=== PATIENT | male | born 1975 | race African-American/Black ===

== ENCOUNTER 2017-07-21 15:36 | Inpatient (IN) | payer SELFPAY ==
[2017-07-21] MEDS ORDERED: NS 1000 ML 1,000 ML ONE ×2 (15:51→21:54)
[2017-07-21] MEDS ORDERED: NS 1000 ML 1,000 ML IV ONE ×2 (15:59→16:00)
--- NOTE | 2017-07-21 16:00 | DR.GENAD ---
HPI - PCP Primary Care Physician: ronda tian - HPI Comment HPI Comment: GLUCOSE MARKEDLY ELEVATED. NO HISTORY OF DIABETES. - Complaint/Symptoms Chief Complaint Doctors Comments: SENT TO ED FROM HIS [facility] [employer] OFFICE CONFUSE. HE IS CINFUFUSE IN ED ALSO. Chief Complaint:: pt came in very confused not able to stay awake. Daughter said " He had right foot surgery on the 28 of sep and hasnt been the same since" - Nurses notes reviewed Nurses Notes Review: Yes - Source History Provided: Family Member - Mode of Arrival Mode of Arrival: Wheelchair - Timing Onset of Chief Complaint: 07/12/17 Came on: Suddenly - Duration Duration: Constant Duration: Days - Severity Severity: Moderate PMH - PMH Past Medical History: Yes Past Medical History: Hypertension Past Surgical History: Yes Past Surgical History Comment: right foot - Family History History of Family Medical Conditions: No - Social History Does patient currently use any type of tobacco product: No Have you used tobacco products in the last 12 months: No Type of Tobacco Use: None Does any household member use tobacco: No Alcohol Use: None Do you use any recreational Drugs:: No Lives With: Family Lives Where: Home - infectious screening In the last 2 months have you had wt loss of >10#?: NO Have you had fever, night sweats or hemotysis?: No Have you traveled outside the country in the last 6 months?: No Isolation: Standard ROS - Review of Systems Constitutional: Fever, Weakness. negative: Diaphoresis Eyes: negative: Eye Pain, Discharge ENTM: negative: Ear Pain, Nose Discharge, Nose Congestion, Throat Pain Respiratoy: Non-Productive Cough, Short of Breath, Wheezing. negative: Productive Cough, Hemoptysis Cardiovascular: negative: Chest Pain Gastrointestinal/Abdominal: Abdominal Pain, Nausea Genitourinary: Other (POLYURIA, POLYDYPSIA PER FAMILY.) Neurological: Pre-existing Deficit, Problems Walking, Other (PATIENT NOT COMPREHENDING, NOT FOLLOWING INTRUCTIONS. ALERT.) Musculoskeletal: Other (EXTREMITIRS BOT FLACID OR TENSE.) Integumentary: No Symptoms Reported Hematologic/Lymphatic: No Symptoms Reported Endocrine: Increased Thirst, Increased Urine. negative: Flushing (HISTORY PER FAMILY MEMBERS.) All Other Systems: Reviewed and Negative PE - Vital Signs Vitals: Pulse Rate 126 Respiratory Rate 18 Blood Pressure 136/95 O2 Sat by Pulse Oximetry 95 - General Limitations: Altered Mental Status General Appearance: Alert, Other (NOT COMPREHENDING.) - Head Head Exam: Normal Inspection - Eyes Eye exam: PERRL (EQUAL AND REACTIVE.). negative: Scleral Icterus, Conjunctival Injection, Nystagmus, Miosis, Mydrasis, Periorbital Swelling, Periorbital Tenderness - ENT ENT Exam: Normal External Ear Exam External Ear Exam: Normal External Inspection TM/Canal Exam: Bilateral Normal Nose Exam: Normal Nose Exam Mouth Exam: Normal Inspection Throat Exam: Normal Inspection - Neck Neck Exam: Full ROM, Trachea Midline - Chest Chest Inspection: Symmetric Chest Wall Rise - Respiratory Respiratory Exam: Normal Lung Sounds Bilat Respiratory Exam: Bilateral Rhonchi, Lower Rhonchi - Cardiovascular Cardiovascular Exam: Regular Rate, Normal Rhythm, Normal Heart Sounds - Abdominal Exam Abdominal Exam: Normal Bowel Sounds, Soft, Tenderness Abdominal Tenderness: Diffuse, Moderate - Extremities Extremities Exam: Edema (TRACE) - Back Back Exam: negative: Normal Inspection (TENDER.) - Neurologic Neurological Exam: Alert, Reflexes Normal. negative: Oriented X3, Motor Sensory Deficit - Skin Skin Exam: negative: Rash, Erythema MDM - Additional Information Additional Information Obtained From: Family, PCP - Differential Diagnosis Differential Diagnosis: AMS, DKA, DEHYDRATION, FEVER, SEPSIS Course - Treatment Treatment: SEE ORDERS. 2L NS IN ED. INSULIN DRIP IN ED. - Consultation Consultation Comments: DISCUSS PATIENT WITH DR. CRYSTAL. HE WILL ADMIT PATIENT. - Education/Counseling Education/Counseling: Family, Education Educated On: Treatment, Diagnosis ROR - Labs Reviewed Laboratory Results Reviewed?: Yes Result Diagrams: 07/21/17 16:00 07/21/17 23:40 - XRAY XRAY Interpreted by: Radiologist XRAY Findings: REPORT DISCUSS WITH PATIENTS FAMILY. - EKG Rhythm: ST - Diagnosis Discharge Problem: Diabetes mellitus, new onset, Hyperkalemia, Fever DKA (diabetic ketoacidoses) Qualifiers: Diabetes mellitus type: type 2 Diabetes mellitus complication detail: without coma Qualified Code(s): E13.10 - Other specified diabetes mellitus with ketoacidosis without coma UTI (urinary tract infection) Qualifiers: Urinary tract infection type: site unspecified Hematuria presence: without hematuria Qualified Code(s): N39.0 - Urinary tract infection, site not specified - Discharge Plan Disposition: 09 ADMITTED INPATIENT Condition: Stable - Follow ups/Referrals - Instructions
[2017-07-21 16:17] LABS: BASOPHILS # (AUTO) 0.1 X10^3/uL (0.0-0.1); BASOPHILS % (AUTO) 0.7 % (0.2-1.0); EOSINOPHILS % (AUTO) 0.1 % (0.9-2.9); HEMATOCRIT 55.2 % (42.0-54.0); HEMOGLOBIN 18.1 g/dL (13.5-18.0); LYMPHOCYTES # (AUTO) 1.7 X10^3/uL (1.3-2.9); MEAN CORPUSCULAR HEMOGLOBIN 28.9 pg (27.0-34.0); MEAN CORPUSCULAR HGB CONC 32.8 g/dL (33.0-35.0); MEAN CORPUSCULAR VOLUME 88.1 fL (80.0-100.0); MEAN PLATELET VOLUME 11.4 fL (7.4-11.0); MONOCYTES # (AUTO) 0.6 x10^3/uL (0.3-0.8); NEUTROPHILS # (AUTO) 13.3 x10^3/uL (2.2-4.8); NEUTROPHILS % (AUTO) 84.2 % (42.0-75.0); PLATELET COUNT 213 X10^3/uL (150.0-450.0); RED BLOOD COUNT 6.26 X10^6/uL (4.7-6.0); RED CELL DISTRIBUTION WIDTH 14.1 % (11.6-16.5); WHITE BLOOD COUNT 15.8 X10^3/uL (3.6-10.0)
[2017-07-21 16:17] LABS: ABG BASE EXCESS -8.9 mmol/L (-2.0-2.0)
[2017-07-21 16:18] LABS: ABG HCO3 15.6 mmol/L (22-26)
[2017-07-21 16:19] LABS: ABG ALLEN TEST POS
[2017-07-21 16:36] LABS: ALANINE AMINOTRANSFERASE 36 Units/L (12-78); ALBUMIN 4.9 g/dL (3.4-5.0); ALKALINE PHOSPHATASE 66 Units/L (46-116); ASPARTATE AMINO TRANSFERASE 15 Units/L (15-37); BLOOD UREA NITROGEN 48 mg/dL (7-18); CALCIUM 11.2 mg/dL (8.5-10.1); CARBON DIOXIDE 16.6 mmol/L (21-32); CHLORIDE 92 mmol/L (98-107); CKMB % 0.8 % (<4); CREATINE KINASE 131 Units/L (39-308); CREATINE KINASE MB < 1.0 ng/mL (0-4.0); CREATININE 2.92 mg/dL (0.70-1.30); SODIUM 134 mmol/L (136-145); TOTAL PROTEIN 10.2 g/dL (6.4-8.2); TROPONIN I < 0.02 ng/mL (0-1.5); eGFR BLACK RACES 30 (>60); eGFR NON BLACK RACES 25 (>60)
[2017-07-21 16:44] LABS: BILIRUBIN,URINE NEGATIVE (NEGATIVE); BLOOD/HEMOGLOBIN,URINE 2+ (NEGATIVE); GLUCOSE, URINE 4+ (NEGATIVE); KETONES,URINE 2+ (NEGATIVE); LEUKOCYTE ESTERASE ,URINE NEGATIVE (NEGATIVE); NITRITES,URINE NEGATIVE (NEGATIVE); PROTEIN,URINE 3+ (NEGATIVE); UROBILINOGEN,URINE NORMAL (NORMAL)
--- NOTE | 2017-07-21 16:47 | CT ---
HISTORY: Altered mental status. Study: CT brain without contrast Comparison: None. Technique: Multiple axial images of the brain were obtained from the skull base to the vertex without administra tion of IV contrast. Dose reduction techniques including Automated Exposure Control (AEC) and adjust ment of mA and kV were utilized. Findings: No acute intraparenchymal hemorrhage or mass can be identified. No extra-axial fluid collections are seen. No alteration in the attenuation of the brain parenchyma can be identified to suggest acute o r subacute ischemic change. The ventricular system is symmetric and nondilated. The extracranial st ructures are grossly unremarkable. IMPRESSION: No acute intracranial pathology. Reported By:
[2017-07-21 16:53] LABS: COR NA(FOR HYPERGLY) 155 mmol/L (136-145)
--- NOTE | 2017-07-21 16:54 | RAD ---
Chest, one-view Indication: Hypertension Comparison: None Findings: Heart size is normal and the lungs are clear. Osseous thorax is unremarkable. Impression: No acute chest process. Reported By:
[2017-07-21 16:56] LABS: AMORPHOUS SEDIMENT,UR 1+ /HPF (NEGATIVE); APPEARANCE,URINE SLIGHTLY HAZY (CLEAR); BACTERIA,URINE 1+ /HPF (NEGATIVE); COLOR,URINE YELLOW (YELLOW); SQUAMOUS EPITHELIAL CELL,UR RARE /HPF (NEGATIVE)
[2017-07-21] MEDS ORDERED: HumuLIN R IV ONE (16:57)
[2017-07-21] MEDS ORDERED: HumuLIN R ONE (17:02)
[2017-07-21] MEDS ORDERED: NS 100 ML IV 100 ML IV ONE (17:02)
[2017-07-21] MEDS ORDERED: CALCIUM CHLORIDE INJ IV ONE (17:17)
[2017-07-21] MEDS ORDERED: TORADOL 30 MG VIAL ONE (18:19)
[2017-07-21] MEDS ORDERED: TORADOL 30 MG VIAL IVP ONE (18:21)
[2017-07-21 18:50] LABS: CALCIUM 10.9 mg/dL (8.5-10.1); CARBON DIOXIDE 17.6 mmol/L (21-32); CREATININE 2.32 mg/dL (0.70-1.30)
[2017-07-21] MEDS ORDERED: SNACK - Diabetic Appropriate PO SCH (20:00)
[2017-07-21] MEDS ORDERED: NS 50 ML IV + SPIKE MINIBAG* 50 ML IV ONE (20:25)
[2017-07-21] MEDS ORDERED: ROCEPHIN VIAL 1 GM ONE (20:26)
[2017-07-21] MEDS: ROCEPHIN VIAL 1 GM 1 GM in NS 50 ML IV + SPIKE MINIBAG* 50 ML IV SCH (20:36)
[2017-07-22] LABS: CALCIUM 10.9 mg/dL (8.5-10.1); CARBON DIOXIDE 22.8 mmol/L (21-32); CREATININE 2.2 mg/dL (0.70-1.30)
[2017-07-22 00:14] LABS: CKMB % 0.7 % (<4); CREATINE KINASE 141 Units/L (39-308); CREATINE KINASE MB < 1.0 ng/mL (0-4.0); TROPONIN I < 0.02 ng/mL (0-1.5)
[2017-07-22 03:35] LABS: BASOPHILS # (AUTO) 0.1 X10^3/uL (0.0-0.1); BASOPHILS % (AUTO) 0.7 % (0.2-1.0); HEMATOCRIT 51.2 % (42.0-54.0); HEMOGLOBIN 17.5 g/dL (13.5-18.0); LYMPHOCYTES # (AUTO) 2.1 X10^3/uL (1.3-2.9); LYMPHOCYTES % (AUTO) 12.2 % (21.0-51.0); MEAN CORPUSCULAR HEMOGLOBIN 28.7 pg (27.0-34.0); MEAN CORPUSCULAR HGB CONC 34.1 g/dL (33.0-35.0); MEAN CORPUSCULAR VOLUME 84.2 fL (80.0-100.0); MEAN PLATELET VOLUME 10.7 fL (7.4-11.0); MONOCYTES # (AUTO) 1.3 x10^3/uL (0.3-0.8); MONOCYTES % (AUTO) 7.4 % (0.0-13.0); NEUTROPHILS % (AUTO) 79.7 % (42.0-75.0); PLATELET COUNT 187 X10^3/uL (150.0-450.0); RED BLOOD COUNT 6.08 X10^6/uL (4.7-6.0); RED CELL DISTRIBUTION WIDTH 14.6 % (11.6-16.5); WHITE BLOOD COUNT 17.6 X10^3/uL (3.6-10.0)
[2017-07-22 03:55] LABS: BLOOD UREA NITROGEN 43 mg/dL (7-18); CALCIUM 10.9 mg/dL (8.5-10.1); CARBON DIOXIDE 24.1 mmol/L (21-32); CHLORIDE 111 mmol/L (98-107); CKMB % 0.7 % (<4); COR NA(FOR HYPERGLY) 155 mmol/L (136-145); CREATINE KINASE 153 Units/L (39-308); CREATINE KINASE MB < 1.0 ng/mL (0-4.0); CREATININE 1.99 mg/dL (0.70-1.30); SODIUM 148 mmol/L (136-145); TROPONIN I < 0.02 ng/mL (0-1.5); eGFR BLACK RACES 47 (>60); eGFR NON BLACK RACES 39 (>60)
[2017-07-22] MEDS ORDERED: NS 100 ML IV 0 ML IV ONE (06:29)
[2017-07-22] MEDS: ROCEPHIN VIAL 1 GM 1 GM in NS 50 ML IV + SPIKE MINIBAG* 50 ML IV SCH (09:39)
[2017-07-22] MEDS: NS 1000 ML 1,000 ML with SODIUM BICARBONATE 8.4% INJ ADULT 50 ML IV SCH ×4 (09:40→17:36)
[2017-07-22] MEDS ORDERED: LEVEMIR SC SCH (10:00)
[2017-07-22] MEDS ORDERED: GLUCOPHAGE ONE ×2 (10:23→16:56)
[2017-07-22] MEDS: GLUCOPHAGE PO SCH ×2 (11:10→16:58)
[2017-07-22] MEDS: LEVEMIR SC SCH ×2 (11:11→20:19)
[2017-07-22] MEDS: HumuLIN R SUBCUT PRN ×2 (11:20→16:39)
--- NOTE | 2017-07-22 11:40 | DR.H&P ---
H&P - History & Physical for Day of: H&P Date: 07/21/17 - Chief Complaint Chief Complaint: WEAKNESS AND DROWSINESS - Allergies Allergies/Adverse Reactions: Allergies Allergy/AdvReac Type Severity Reaction Status Date / Time No Known Drug Allergies Allergy Verified 07/21/17 15:37 - History of Present Illness History of Present Illness: is a 41 year old patient of [facility] who presented to the emergency room with complaints of confusion. Patients daughter reports that patient has been confused and drowsy. Daughter reports that patient had a right foot scope on July 09, and that he has had weakness since then. She reports that patient was taken to [facility] office, but she sent him here to be evaluated. Patient continues with weakness , drowsiness, and confusion in the ER. Extremities are noted to be flaccid. Associated symptoms include fever, weakness, non-productive cough, shortness of breath and wheezing. Patients family members state that patient has had increased thirst and increased urination. They deny a known history of diabetes. On examination, lungs were noted clear to auscultation. Abdomen is round, soft, and non-tender. Normal bowel sounds are noted in all quadrants. On arrival, vital signs are 100.0, 126, 18, 95%RA, 136/95. A One touch blood sugar was obtained and reported too high to read. A CBC, CMP, ABG, and urinalysis were obtained. Abnormal lab values include the following: WBC 15.8, RBC 6.26, Hgb 18.1, Hct 55.2, MCHC 32.8, Sodium 134, Corrected Sodium 155, Potassium 7.1, Chloride 92, Carbon Dioxide 16.6, BUN 48, Creatinine 2.92, GFR(AA) 30, GFR(non) 25, Glucose 991, Hemoglobin A1C 9.3, Lactic Acid 5.6, Calcium 11.2, Total Bilirubin 1.10, Total Protein 10.2, Globulin 5.3, A/G Ratio 0.9. Urinalysis reported: Elif Slightly Hazy, Protein 3+, Glucose 4+, Ketones 2+, Occult Blood 2+ , Acetone Small, RBC 1-3, WBC 5-7, Squam Epith Cells Rare, Amoph Sed 1+, Bacteria 1+. ABG reported: PH 7.340, PCO2 29.0, PO2 60.0, HCO3 15.6, O2 saturation 89.0, Base Excess -8.9. Blood cultures were obtained and are pending results. A chest xray and brain CT were obtained. Chest xray reports no acute chest process. Brain CT reports no acute intracranial pathology. A EKG was obtained and reported Sinus tachycardia with HR 125. Patient was started on an insulin drip in the ER. He received Normal Saline 1 liter bolus x 2. We admitted patient to the intensive care unit for further treatment and evaluation. We started him on Ceftriaxone 1gm IV daily, Saline Flush 10ml IV TID , Insulin drip IV titrate per protocol PRN, OTBS q1hour. We plan to follow up with AM labs and continue to monitor. - Past Medical History Past Medical History: Hypertension - Past Surgical History Additional Surgical History: RIGHT ANKLE SCOPE - Social History Does patient currently use any type of tobacco product: No Have you used tobacco products in the last 12 months: No Type of Tobacco Use: None Does any household member use tobacco: No Alcohol Use: None Drug Use: None - Medications Home Medications: NK [NK] 07/22/17 [History Confirmed 07/22/17] - Review of Systems Constitutional: See HPI, Fever, Weakness Eyes: No Symptoms Reported ENT: No Symptoms Reported Respiratory: Cough, Shortness of Breath, Wheezing Cardiovascular: Chest Pain, Light Headedness Gastrointestinal: Nausea Genitourinary: See HPI, Frequency Musculoskeletal: No Symptoms Reported Skin: No Symptoms Reported Neurological: Weakness - Physical Exam Vital Signs: Temperature 99.0 F Pulse Rate [Right Brachial] 106 Pulse Rate 126 Respiratory Rate 28 Blood Pressure [Right Arm] 159/101 Blood Pressure 136/95 O2 Sat by Pulse Oximetry 92 Oriented: Other (CONFUSION ) Eyes: Normal Ear: Normal Nose: Normal Throat: Normal Respiratory: Wheezes Throughout Cardiovascular: Tachycardia : Dysuria, Frequency Auscultation: Bowel Sounds: Normal Palpation: Normal Tenderness: Normal Skin: Normal Musculoskeletal: Right, Ankle, Swelling, Tender Psychiatric: Normal Mood Description: Calm Affect: Flat, Normal Speech Pattern: Appropriate - Assessment/Plan (1) DKA (diabetic ketoacidoses) Qualifiers: Diabetes mellitus type: type 2 Diabetes mellitus complication detail: without coma Qualified Code(s): E13.10 - Other specified diabetes mellitus with ketoacidosis without coma Status: Acute Plan: INSULIN DRIP, OTBS Q1H, MONITOR URINE ACETONES, CONTINUE TO MONITOR (2) Diabetes mellitus, new onset Status: Acute Plan: INSULIN DRIP, OTBS Q1H, CONTINUE TO MONITOR (3) UTI (urinary tract infection) Qualifiers: Urinary tract infection type: site unspecified Hematuria presence: without hematuria Qualified Code(s): N39.0 - Urinary tract infection, site not specified Status: Acute Plan: ROCEPHIN 1GM IV DAILY, CONTINUE TO MONITOR
[2017-07-22 16:46] VITALS: BMI 33.2
[2017-07-22] MEDS ORDERED: SNACK - Diabetic Appropriate PO SCH (20:00)
[2017-07-22] MEDS: SNACK - Diabetic Appropriate PO SCH (20:19)
[2017-07-23] MEDS: NS 1000 ML 1,000 ML with SODIUM BICARBONATE 8.4% INJ ADULT 50 ML IV SCH ×12 (00:09→18:40)
[2017-07-23 06:14] LABS: BASOPHILS # (AUTO) 0.1 X10^3/uL (0.0-0.1); BASOPHILS % (AUTO) 0.9 % (0.2-1.0); EOSINOPHILS # (AUTO) 0.1 x10^3/uL (0.0-0.2); EOSINOPHILS % (AUTO) 0.4 % (0.9-2.9); HEMATOCRIT 48.3 % (42.0-54.0); HEMOGLOBIN 16.5 g/dL (13.5-18.0); LYMPHOCYTES # (AUTO) 2.4 X10^3/uL (1.3-2.9); LYMPHOCYTES % (AUTO) 15.5 % (21.0-51.0); MEAN CORPUSCULAR HEMOGLOBIN 28.9 pg (27.0-34.0); MEAN CORPUSCULAR HGB CONC 34.1 g/dL (33.0-35.0); MEAN CORPUSCULAR VOLUME 84.8 fL (80.0-100.0); MEAN PLATELET VOLUME 10.4 fL (7.4-11.0); MONOCYTES # (AUTO) 0.9 x10^3/uL (0.3-0.8); MONOCYTES % (AUTO) 6.1 % (0.0-13.0); NEUTROPHILS # (AUTO) 11.8 x10^3/uL (2.2-4.8); NEUTROPHILS % (AUTO) 77.1 % (42.0-75.0); PLATELET COUNT 143 X10^3/uL (150.0-450.0); RED CELL DISTRIBUTION WIDTH 14.6 % (11.6-16.5); WHITE BLOOD COUNT 15.3 X10^3/uL (3.6-10.0)
[2017-07-23 06:33] LABS: ABG BASE EXCESS 5.8 mmol/L (-2.0-2.0)
[2017-07-23 06:34] LABS: ABG HCO3 30.6 mmol/L (22-26)
[2017-07-23 06:35] LABS: ABG ALLEN TEST POS
[2017-07-23 06:37] LABS: ALANINE AMINOTRANSFERASE 29 Units/L (12-78); ALBUMIN 3.7 g/dL (3.4-5.0); ALKALINE PHOSPHATASE 54 Units/L (46-116); ASPARTATE AMINO TRANSFERASE 16 Units/L (15-37); BLOOD UREA NITROGEN 33 mg/dL (7-18); CALCIUM 9.7 mg/dL (8.5-10.1); CARBON DIOXIDE 28.3 mmol/L (21-32); CHOL/HDL RATIO 7.4 (0.0-5.0); CHOLESTEROL 274 mg/dL (0-200); COR NA(FOR HYPERGLY) 162 mmol/L (136-145); CREATININE 1.87 mg/dL (0.70-1.30); HDL CHOLESTEROL 37 mg/dL (40-60); TOTAL PROTEIN 8.1 g/dL (6.4-8.2); TRIGLYCERIDES 219 mg/dL (0-150); eGFR BLACK RACES 51 (>60); eGFR NON BLACK RACES 42 (>60)
[2017-07-23] MEDS ORDERED: GLUCOPHAGE ONE ×2 (06:44→16:44)
[2017-07-23] MEDS: GLUCOPHAGE PO SCH ×2 (06:55→16:48)
[2017-07-23 07:10] LABS: SODIUM 157 mmol/L (136-145)
[2017-07-23 07:11] LABS: CHLORIDE 118 mmol/L (98-107)
[2017-07-23] MEDS ORDERED: LEVEMIR SC SCH (09:45)
[2017-07-23] MEDS: ROCEPHIN VIAL 1 GM 1 GM in NS 50 ML IV + SPIKE MINIBAG* 50 ML IV SCH (10:00)
[2017-07-23] MEDS: CRESTOR TAB 10 MG PO SCH ×2 (10:24→21:30)
[2017-07-23] MEDS: ZESTRIL TAB 10 MG PO SCH ×2 (10:24→21:00)
[2017-07-23] MEDS: ECOTRIN TAB 325 MG PO SCH (10:24)
[2017-07-23] MEDS: HumuLIN R SC PRN ×3 (14:48→22:13)
[2017-07-23] MEDS: SNACK - Diabetic Appropriate PO SCH (20:56)
--- NOTE | 2017-07-23 21:23 | PCM.PROG ---
Progress Note - Progress Note for Day of Date: 07/22/17 - Subjective Subjective: WAS ADMITTED FOR NEW ONSET DIABETES, DKA, AND UTI. TODAY, HE IS ALERT AND ORIENTED, LYING IN BED ON MORNING ROUNDS. PATIENT'S IS AT BEDSIDE. TODAY, HE IS NOTED WITH COMPLAINTS OF WEAKNESS. FAMILY REPORTS THAT HE IS MUCH MORE ALERT THIS MORNING THAN HE WAS LAST NIGHT. ON EXAMINATION, LUNGS ARE NOTED CLEAR TO AUSCULTATION. ABDOMEN IS ROUND, FIRM, AND NON-TENDER. NORMAL BOWEL SOUNDS ARE NOTED IN ALL QUADRANTS. RIGHT ANKLE IS NOTED WITH STERI-STRIPS FROM A RECENT ANKLE SURGERY. NO SIGNS OR SYMPTOMS OF INFECTION TO SITE ARE NOTED. HE IS NOTED ON AN INSULIN DRIP AT THIS TIME. PATIENT IS ON TELEMETRY. SINUS RHYTHM IS NOTED WITH HR AT 106. HIS VITAL SIGNS THIS MORNING ARE 99.0-106- 29-93%-160/100. A CBC AND BMP WERE OBTAINED. ABNORMAL LAB VALUES INCLUDE THE FOLLOWING: WBC 17.6, RBC 6.08, SODIUM 148, BUN 43, CREATININE 1.99, GLUCOSE 394 , CALCIUM 10.9, ACETONES ARE SMALL. TODAY, WE WILL START PATIENT ON NORMAL SALINE WITH 1 AMP OF BICARB AT 150ML/HR, LEVEMIR 10 UNITS SQ BID, METFORMIN 500MG PO BID, AND REGULAR INSULIN SLIDING SCALE. THE INSULIN DRIP WILL BE DISCONTINUED. WE WILL ORDER A FASTING LIPID PANEL FOR IN THE MORNING. WE PLAN TO FOLLOW UP WITH AM LABS AND CONTINUE TO MONITOR PATIENT. - Past Medical Family Social History Past Med/Fam/Surg Hx: No changes since H&P Allergies: Allergies No Known Drug Allergies Allergy (Verified 07/21/17 15:37) - Review of Systems ROS: No change since H&P - Vital Signs and I&O's Vital Signs: Temperature 97.4 F Pulse Rate [Right Brachial] 101 Pulse Rate 126 Respiratory Rate 22 Blood Pressure [Right Arm] 145/80 Blood Pressure 136/95 O2 Sat by Pulse Oximetry 96 Intake and Output: Intake & Output 07/21/17 07/22/17 07/23/17 07/24/17 11:59 11:59 11:59 11:59 Intake Total 1267 3968 2089 Output Total 1125 2150 625 Balance 142 1818 1464 - Physical Exam Oriented: Normal Eyes: Normal Ear: Normal Nose: Normal Throat: Normal Respiratory: Normal Cardiovascular: Tachycardia : Frequency Auscultation: Bowel Sounds: Normal Palpation: Normal Tenderness: Normal Skin: Normal Musculoskeletal: Right, Ankle, Swelling, Tender Psychiatric: Normal Mood Description: Calm Affect: Normal Speech Pattern: Clear, Appropriate - Laboratory and Diagnostics Result Diagrams: 07/23/17 05:45 07/23/17 05:45 Labs: 07/21/17 17:17 Blood Blood Culture - Preliminary 07/21/17 17:17 Blood Blood Culture - Preliminary 07/22/17 18:15 Urine,Clean Catch Urine Culture - Preliminary Laboratory WBC 15.3 X10^3/uL (3.6-10.0) H 07/23/17 05:45 RBC 5.70 X10^6/uL (4.7-6.0) 07/23/17 05:45 Hgb 16.5 g/dL (13.5-18.0) 07/23/17 05:45 Hct 48.3 % (42.0-54.0) 07/23/17 05:45 MCV 84.8 fL (80.0-100.0) 07/23/17 05:45 MCH 28.9 pg (27.0-34.0) 07/23/17 05:45 MCHC 34.1 g/dL (33.0-35.0) 07/23/17 05:45 RDW 14.6 % (11.6-16.5) 07/23/17 05:45 Plt Count 143 X10^3/uL (150.0-450.0) L 07/23/17 05:45 MPV 10.4 fL (7.4-11.0) 07/23/17 05:45 Neut % 77.1 % (42.0-75.0) H 07/23/17 05:45 Lymph % 15.5 % (21.0-51.0) L 07/23/17 05:45 Knott % 6.1 % (0.0-13.0) 07/23/17 05:45 Eos % 0.4 % (0.9-2.9) L 07/23/17 05:45 Baso % 0.9 % (0.2-1.0) 07/23/17 05:45 Neut # 11.8 x10^3/uL (2.2-4.8) H 07/23/17 05:45 Lymph # 2.4 X10^3/uL (1.3-2.9) 07/23/17 05:45 Knott # 0.9 x10^3/uL (0.3-0.8) H 07/23/17 05:45 Eos # 0.1 x10^3/uL (0.0-0.2) 07/23/17 05:45 Baso # 0.1 X10^3/uL (0.0-0.1) 07/23/17 05:45 Absolute Nucleated RBC 0.0 /100WBC 07/23/17 05:45 INR Target Range - 07/22/17 03:15 INR 1.16 (0.8-1.3) 07/22/17 03:15 PTT 25.0 SECONDS (22.9-36.5) 07/22/17 03:15 PTT Comment - 07/22/17 03:15 Sample Site Rrad 07/23/17 06:23 ABG pH 7.450 (7.35-7.45) 07/23/17 06:23 ABG pCO2 44.0 mmHg (35.0-45.0) 07/23/17 06:23 ABG pO2 68.0 mmHg (80.0-100.0) L 07/23/17 06:23 ABG HCO3 30.6 mmol/L (22-26) H* 07/23/17 06:23 ABG O2 Saturation 94.0 % (90-100) 07/23/17 06:23 ABG Base Excess 5.8 mmol/L (-2.0-2.0) H 07/23/17 06:23 Raf Test Pos 07/23/17 06:23 A-a Gradient 77.0 mmHg 07/23/17 06:23 FiO2 28.000 07/23/17 06:23 Blood Gas Comments Darrius abg well-mtf 07/23/17 06:23 Sodium 157 mmol/L (136-145) H* 07/23/17 05:45 Corrected Sodium 162 mmol/L (136-145) H 07/23/17 05:45 Potassium 4.4 mmol/L (3.5-5.1) 07/23/17 05:45 Chloride 118 mmol/L (98-107) H* 07/23/17 05:45 Carbon Dioxide 28.3 mmol/L (21-32) 07/23/17 05:45 BUN 33 mg/dL (7-18) H 07/23/17 05:45 Creatinine 1.87 mg/dL (0.70-1.30) H 07/23/17 05:45 Est GFR (MDRD) Af Amer 51 (>60) L 07/23/17 05:45 Est GFR (MDRD) Non-Af 42 (>60) L 07/23/17 05:45 Glucose 304 mg/dL (65-99) H 07/23/17 05:45 POC Glucose (mg/dL) 319 mg/dL (65-99) H 07/23/17 21:09 Hemoglobin A1c 9.3 % (4.5-6.2) H 07/21/17 16:00 Lactic Acid 5.6 mmol/L (0.4-2.0) H 07/21/17 17:17 Calcium 9.7 mg/dL (8.5-10.1) 07/23/17 05:45 Corrected Calcium TNP 07/23/17 05:45 Total Bilirubin 0.80 mg/dL (0.2-1.0) 07/23/17 05:45 AST 16 Units/L (15-37) 07/23/17 05:45 ALT 29 Units/L (12-78) 07/23/17 05:45 Alkaline Phosphatase 54 Units/L (46-116) 07/23/17 05:45 Creatine Kinase 153 Units/L (39-308) 07/22/17 03:15 CK-MB (CK-2) < 1.0 ng/mL (0-4.0) 07/22/17 03:15 CK/CKMB % Calc 0.7 % (<4) 07/22/17 03:15 Troponin I < 0.02 ng/mL (0-1.5) 07/22/17 03:15 Total Protein 8.1 g/dL (6.4-8.2) 07/23/17 05:45 Albumin 3.7 g/dL (3.4-5.0) 07/23/17 05:45 Globulin 4.4 g/dL (2.5-4.5) 07/23/17 05:45 Albumin/Globulin Ratio 0.8 Ratio (1.1-2.1) 07/23/17 05:45 Triglycerides 219 mg/dL (0-150) H 07/23/17 05:45 Cholesterol 274 mg/dL (0-200) H 07/23/17 05:45 LDL Cholesterol, Calc 193 mg/dL (0-100) H 07/23/17 05:45 HDL Cholesterol 37 mg/dL (40-60) L 07/23/17 05:45 Cholesterol/HDL Ratio 7.4 (0.0-5.0) H 07/23/17 05:45 Specimen Type Random urine 07/21/17 15:56 Urine Color Yellow (YELLOW) 07/21/17 15:56 Urine Appearance Slightly hazy (CLEAR) 07/21/17 15:56 Urine pH 5.0 (5.0 - 8.0) 07/21/17 15:56 Ur Specific [place] 1.015 (1.000-1.030) 07/21/17 15:56 Urine Protein 3+ (NEGATIVE) 07/21/17 15:56 Urine Glucose (UA) 4+ (NEGATIVE) 07/21/17 15:56 Urine Ketones 2+ (NEGATIVE) 07/21/17 15:56 Urine Occult Blood 2+ (NEGATIVE) 07/21/17 15:56 Urine Nitrite Negative (NEGATIVE) 07/21/17 15:56 Urine Bilirubin Negative (NEGATIVE) 07/21/17 15:56 Urine Acetone Small (NEGATIVE) 07/23/17 11:43 Urine Urobilinogen Normal (NORMAL) 07/21/17 15:56 Ur Leukocyte Esterase Negative (NEGATIVE) 07/21/17 15:56 Urine RBC 1-3 /HPF (NEGATIVE) 07/21/17 15:56 Urine WBC 5-7 /HPF (NEGATIVE) 07/21/17 15:56 Ur Squamous Epith Cells Rare /HPF (NEGATIVE) 07/21/17 15:56 Amorphous Sediment 1+ /HPF (NEGATIVE) 07/21/17 15:56 Urine Bacteria 1+ /HPF (NEGATIVE) 07/21/17 15:56 Ur Culture Indicated? No/not indicated 07/21/17 15:56 Acetone, Semi-Quant Small (NEGATIVE) H 07/22/17 03:15 - Plan (1) DKA (diabetic ketoacidoses) Status: Acute Qualifiers: Diabetes mellitus type: type 2 Diabetes mellitus complication detail: without coma Qualified Code(s): E13.10 - Other specified diabetes mellitus with ketoacidosis without coma Plan: LEVEMIR 10 UNITS BID, METFORMIN 500MG BID, SLIDING SCALE INSULIN, OTBS Q2H , MONITOR URINE ACETONES, CONTINUE TO MONITOR (2) Diabetes mellitus, new onset Status: Acute Plan: LEVEMIR 10 UNITS BID, METFORMIN 500MG BID, SLIDING SCALE INSULIN, OTBS Q2H , MONITOR URINE ACETONES, CONTINUE TO MONITOR (3) UTI (urinary tract infection) Status: Acute Qualifiers: Urinary tract infection type: site unspecified Hematuria presence: without hematuria Qualified Code(s): N39.0 - Urinary tract infection, site not specified Plan: ROCEPHIN 1GM IV DAILY, CONTINUE TO MONITOR
[2017-07-24] MEDS ORDERED: GLUCOPHAGE ONE (05:32)
[2017-07-24] MEDS: HumuLIN R SC PRN ×3 (05:51→20:24)
[2017-07-24] MEDS: GLUCOPHAGE PO SCH ×3 (06:04→18:17)
[2017-07-24 06:06] LABS: BASOPHILS # (AUTO) 0.1 X10^3/uL (0.0-0.1); BASOPHILS % (AUTO) 0.8 % (0.2-1.0); EOSINOPHILS # (AUTO) 0.1 x10^3/uL (0.0-0.2); EOSINOPHILS % (AUTO) 0.8 % (0.9-2.9); HEMATOCRIT 45.1 % (42.0-54.0); HEMOGLOBIN 15.2 g/dL (13.5-18.0); LYMPHOCYTES # (AUTO) 2.1 X10^3/uL (1.3-2.9); LYMPHOCYTES % (AUTO) 18.7 % (21.0-51.0); MEAN CORPUSCULAR HEMOGLOBIN 28.7 pg (27.0-34.0); MEAN CORPUSCULAR HGB CONC 33.6 g/dL (33.0-35.0); MEAN CORPUSCULAR VOLUME 85.4 fL (80.0-100.0); MEAN PLATELET VOLUME 10.4 fL (7.4-11.0); MONOCYTES # (AUTO) 0.7 x10^3/uL (0.3-0.8); MONOCYTES % (AUTO) 5.9 % (0.0-13.0); NEUTROPHILS # (AUTO) 8.2 x10^3/uL (2.2-4.8); NEUTROPHILS % (AUTO) 73.8 % (42.0-75.0); PLATELET COUNT 96 X10^3/uL (150.0-450.0); RED BLOOD COUNT 5.28 X10^6/uL (4.7-6.0); RED CELL DISTRIBUTION WIDTH 14.4 % (11.6-16.5)
[2017-07-24 06:18] LABS: ALBUMIN 3.3 g/dL (3.4-5.0); CALCIUM 9.7 mg/dL (8.5-10.1); CARBON DIOXIDE 31.1 mmol/L (21-32); COR CA(FOR HYPOALB) 10.3 mg/dL (8.5-10.1); CREATININE 1.65 mg/dL (0.70-1.30); TOTAL PROTEIN 7.3 g/dL (6.4-8.2)
[2017-07-24 06:20] LABS: ABG BASE EXCESS 7.6 mmol/L (-2.0-2.0)
[2017-07-24 06:21] LABS: ABG ALLEN TEST POS
[2017-07-24] MEDS: ECOTRIN TAB 325 MG PO SCH (08:47)
[2017-07-24] MEDS: ROCEPHIN VIAL 1 GM 1 GM in NS 50 ML IV + SPIKE MINIBAG* 50 ML IV SCH (08:47)
[2017-07-24] MEDS ORDERED: NS 50 ML IV + SPIKE MINIBAG* 50 ML IV ONE (08:48)
[2017-07-24] MEDS ORDERED: NS 1/2 1000 ML IV 1,000 ML IV ONE ×2 (11:12→18:10)
[2017-07-24] MEDS ORDERED: SODIUM BICARBONATE 8.4% INJ ADULT ONE ×2 (11:12→18:10)
[2017-07-24] MEDS: NS 1/2 1000 ML IV 1,000 ML with SODIUM BICARBONATE 8.4% INJ ADULT 50 ML IV SCH ×4 (11:40→18:17)
[2017-07-24 18:05] LABS: CREATINE KINASE 207 Units/L (39-308); CREATINE KINASE MB < 1.0 ng/mL (0-4.0); TROPONIN I < 0.02 ng/mL (0-1.5)
[2017-07-24] MEDS: SINGULAIR TAB 10 MG PO SCH ×3 (18:17→20:04)
[2017-07-24] MEDS: FLONASE NASAL SPRAY ENOSTRIL SCH (18:17)
[2017-07-24 18:22] LABS: CKMB % 0.5 % (<4)
[2017-07-24] MEDS: CRESTOR TAB 10 MG PO SCH (20:21)
[2017-07-24] MEDS: ZESTRIL TAB 10 MG PO SCH (20:22)
[2017-07-24] MEDS: SNACK - Diabetic Appropriate PO SCH (22:03)
[2017-07-24] MEDS: CHLORASEPTIC SPRAY MT PRN (22:39)
[2017-07-25] MEDS ORDERED: NS 1/2 1000 ML IV 1,000 ML IV ONE ×2 (01:05→08:24)
[2017-07-25] MEDS ORDERED: SODIUM BICARBONATE 8.4% INJ ADULT ONE ×2 (01:05→08:24)
[2017-07-25] MEDS: NS 1/2 1000 ML IV 1,000 ML with SODIUM BICARBONATE 8.4% INJ ADULT 50 ML IV SCH ×12 (01:14→18:19)
[2017-07-25 06:03] LABS: ALANINE AMINOTRANSFERASE 25 Units/L (12-78); ALBUMIN 3.1 g/dL (3.4-5.0); ALKALINE PHOSPHATASE 52 Units/L (46-116); ASPARTATE AMINO TRANSFERASE 22 Units/L (15-37); BLOOD UREA NITROGEN 17 mg/dL (7-18); CALCIUM 9.2 mg/dL (8.5-10.1); CARBON DIOXIDE 31.2 mmol/L (21-32); CHLORIDE 109 mmol/L (98-107); COR CA(FOR HYPOALB) 9.9 mg/dL (8.5-10.1); COR NA(FOR HYPERGLY) 151 mmol/L (136-145); CREATININE 1.44 mg/dL (0.70-1.30); SODIUM 149 mmol/L (136-145); TOTAL PROTEIN 6.9 g/dL (6.4-8.2); eGFR BLACK RACES > 60 (>60); eGFR NON BLACK RACES 57 (>60)
[2017-07-25] MEDS: HumuLIN R SC PRN (06:03)
[2017-07-25] MEDS: GLUCOPHAGE PO SCH ×2 (06:03→17:36)
[2017-07-25 06:10] LABS: BASOPHILS # (AUTO) 0.1 X10^3/uL (0.0-0.1); BASOPHILS % (AUTO) 0.7 % (0.2-1.0); EOSINOPHILS # (AUTO) 0.1 x10^3/uL (0.0-0.2); EOSINOPHILS % (AUTO) 1.2 % (0.9-2.9); HEMATOCRIT 41.2 % (42.0-54.0); HEMOGLOBIN 14.1 g/dL (13.5-18.0); LYMPHOCYTES # (AUTO) 1.9 X10^3/uL (1.3-2.9); LYMPHOCYTES % (AUTO) 16.7 % (21.0-51.0); MEAN CORPUSCULAR HGB CONC 34.2 g/dL (33.0-35.0); MEAN CORPUSCULAR VOLUME 84.8 fL (80.0-100.0); MEAN PLATELET VOLUME 10.1 fL (7.4-11.0); MONOCYTES # (AUTO) 0.7 x10^3/uL (0.3-0.8); MONOCYTES % (AUTO) 5.9 % (0.0-13.0); NEUTROPHILS # (AUTO) 8.4 x10^3/uL (2.2-4.8); NEUTROPHILS % (AUTO) 75.5 % (42.0-75.0); PLATELET COUNT 78 X10^3/uL (150.0-450.0); RED BLOOD COUNT 4.86 X10^6/uL (4.7-6.0); RED CELL DISTRIBUTION WIDTH 13.9 % (11.6-16.5); WHITE BLOOD COUNT 11.2 X10^3/uL (3.6-10.0)
[2017-07-25 06:29] LABS: ABG ALLEN TEST POS; ABG HCO3 34.3 mmol/L (22-26)
[2017-07-25] MEDS: ECOTRIN TAB 325 MG PO SCH (08:42)
[2017-07-25] MEDS: FLONASE NASAL SPRAY ENOSTRIL SCH (08:43)
[2017-07-25] MEDS: ROCEPHIN VIAL 1 GM 1 GM in NS 50 ML IV + SPIKE MINIBAG* 50 ML IV SCH (08:43)
[2017-07-25] MEDS: NYSTATIN SUSP MT SCH ×3 (17:14→20:57)
[2017-07-25] MEDS: ZITHROMAX INJ 500 MG VIAL 500 MG in NS 250 ML IV 250 ML IV SCH (17:14)
[2017-07-25] MEDS: ZESTRIL TAB 10 MG PO SCH (20:57)
[2017-07-25] MEDS: SINGULAIR TAB 10 MG PO SCH (20:57)
[2017-07-25] MEDS: CRESTOR TAB 10 MG PO SCH (20:57)
[2017-07-25] MEDS: SNACK - Diabetic Appropriate PO SCH (21:04)
[2017-07-25] MEDS ORDERED: DIFLUCAN 200 MG IV PREMIX* 200 MG/100 ML BAG IV ONE (22:30)
[2017-07-26] MEDS ORDERED: SODIUM BICARBONATE 8.4% INJ ADULT ONE ×2 (03:16→22:24)
[2017-07-26] MEDS ORDERED: NS 1/2 1000 ML IV 1,000 ML IV ONE ×2 (03:16→22:24)
[2017-07-26] MEDS: NS 1/2 1000 ML IV 1,000 ML with SODIUM BICARBONATE 8.4% INJ ADULT 50 ML IV SCH ×8 (03:22→21:28)
[2017-07-26 05:27] LABS: BASOPHILS % (AUTO) 0.4 % (0.2-1.0); EOSINOPHILS # (AUTO) 0.1 x10^3/uL (0.0-0.2); EOSINOPHILS % (AUTO) 1.1 % (0.9-2.9); HEMATOCRIT 41.9 % (42.0-54.0); HEMOGLOBIN 14.3 g/dL (13.5-18.0); LYMPHOCYTES # (AUTO) 1.6 X10^3/uL (1.3-2.9); MEAN CORPUSCULAR HEMOGLOBIN 28.9 pg (27.0-34.0); MEAN CORPUSCULAR HGB CONC 34.1 g/dL (33.0-35.0); MEAN CORPUSCULAR VOLUME 84.7 fL (80.0-100.0); MONOCYTES # (AUTO) 0.8 x10^3/uL (0.3-0.8); MONOCYTES % (AUTO) 6.3 % (0.0-13.0); NEUTROPHILS # (AUTO) 10.4 x10^3/uL (2.2-4.8); NEUTROPHILS % (AUTO) 80.2 % (42.0-75.0); PLATELET COUNT 76 X10^3/uL (150.0-450.0); RED BLOOD COUNT 4.95 X10^6/uL (4.7-6.0); RED CELL DISTRIBUTION WIDTH 13.9 % (11.6-16.5)
[2017-07-26 05:32] LABS: ALANINE AMINOTRANSFERASE 30 Units/L (12-78); ALBUMIN 3.2 g/dL (3.4-5.0); ALKALINE PHOSPHATASE 62 Units/L (46-116); ASPARTATE AMINO TRANSFERASE 30 Units/L (15-37); BLOOD UREA NITROGEN 14 mg/dL (7-18); CALCIUM 9.3 mg/dL (8.5-10.1); CARBON DIOXIDE 29.1 mmol/L (21-32); CHLORIDE 104 mmol/L (98-107); COR CA(FOR HYPOALB) 9.9 mg/dL (8.5-10.1); COR NA(FOR HYPERGLY) 147 mmol/L (136-145); CREATININE 1.37 mg/dL (0.70-1.30); SODIUM 144 mmol/L (136-145); TOTAL PROTEIN 7.4 g/dL (6.4-8.2); eGFR BLACK RACES > 60 (>60); eGFR NON BLACK RACES > 60 (>60)
[2017-07-26] MEDS: HumuLIN R SC PRN ×3 (06:02→16:40)
[2017-07-26] MEDS: GLUCOPHAGE PO SCH ×2 (06:03→16:30)
[2017-07-26] MEDS: FLONASE NASAL SPRAY ENOSTRIL SCH (08:24)
[2017-07-26] MEDS: ECOTRIN TAB 325 MG PO SCH (08:24)
[2017-07-26] MEDS: NYSTATIN SUSP MT SCH ×4 (08:26→21:24)
[2017-07-26] MEDS: ZITHROMAX INJ 500 MG VIAL 500 MG in NS 250 ML IV 250 ML IV SCH (08:26)
[2017-07-26] MEDS: ROCEPHIN VIAL 1 GM 1 GM in NS 50 ML IV + SPIKE MINIBAG* 50 ML IV SCH (08:26)
[2017-07-26] MEDS: TYLENOL 325 MG TAB PO PRN ×2 (08:50→17:50)
[2017-07-26] MEDS: ROBITUSSIN DM PO PRN ×2 (09:22→17:59)
[2017-07-26] MEDS: ZESTRIL TAB 10 MG PO SCH ×2 (09:23→21:24)
[2017-07-26] MEDS: CRESTOR TAB 10 MG PO SCH (21:24)
[2017-07-26] MEDS: SINGULAIR TAB 10 MG PO SCH (21:24)
[2017-07-26] MEDS: CHLORASEPTIC SPRAY MT PRN (21:25)
[2017-07-26] MEDS: SNACK - Diabetic Appropriate PO SCH (21:25)
--- NOTE | 2017-07-26 22:20 | PCM.PROG ---
Progress Note - Progress Note for Day of Date: 07/25/17 - Subjective Subjective: WAS ADMITTED FOR NEW ONSET DIABETES, DKA, AND UTI. TODAY, HE IS ALERT AND ORIENTED, LYING IN BED ON MORNING ROUNDS. PATIENT'S IS AT BEDSIDE. PATIENT HAD EPISODE OF SOB DURING THE NIGHT. O2 SATS MILDLY LOW. STATES THAT HE DOES FEEL BETTER. - Past Medical Family Social History Past Med/Fam/Surg Hx: No changes since H&P Allergies: Allergies No Known Drug Allergies Allergy (Verified 07/21/17 15:37) - Review of Systems ROS: No change since H&P - Vital Signs and I&O's Vital Signs: Temperature 98.3 F Pulse Rate [Right Brachial] 113 Pulse Rate 100 Respiratory Rate 28 Blood Pressure [Right Arm] 154/79 Blood Pressure 136/95 O2 Sat by Pulse Oximetry 90 Intake and Output: Intake & Output 07/24/17 07/25/17 07/26/17 07/27/17 11:59 11:59 11:59 11:59 Intake Total 2199 5240 5315 1726 Output Total 1225 1150 200 Balance 974 5240 4165 1526 - Physical Exam Oriented: Normal Eyes: Normal Ear: Normal Nose: Normal Throat: Normal Respiratory: Diminished Cardiovascular: Tachycardia : Frequency Auscultation: Bowel Sounds: Normal Palpation: Normal Tenderness: Normal Skin: Normal Musculoskeletal: Right, Ankle, Swelling, Tender Psychiatric: Normal Mood Description: Calm Affect: Normal Speech Pattern: Clear, Appropriate - Laboratory and Diagnostics Result Diagrams: 07/26/17 04:45 07/26/17 04:45 Labs: 07/22/17 18:15 Urine,Clean Catch Urine Culture - Final 07/21/17 17:17 Blood Blood Culture - Preliminary 07/21/17 17:17 Blood Blood Culture - Preliminary Laboratory WBC 13.0 X10^3/uL (3.6-10.0) H 07/26/17 04:45 RBC 4.95 X10^6/uL (4.7-6.0) 07/26/17 04:45 Hgb 14.3 g/dL (13.5-18.0) 07/26/17 04:45 Hct 41.9 % (42.0-54.0) L 07/26/17 04:45 MCV 84.7 fL (80.0-100.0) 07/26/17 04:45 MCH 28.9 pg (27.0-34.0) 07/26/17 04:45 MCHC 34.1 g/dL (33.0-35.0) 07/26/17 04:45 RDW 13.9 % (11.6-16.5) 07/26/17 04:45 Plt Count 76 X10^3/uL (150.0-450.0) L 07/26/17 04:45 MPV 10.0 fL (7.4-11.0) 07/26/17 04:45 Neut % 80.2 % (42.0-75.0) H 07/26/17 04:45 Lymph % 12.0 % (21.0-51.0) L 07/26/17 04:45 [place] % 6.3 % (0.0-13.0) 07/26/17 04:45 Eos % 1.1 % (0.9-2.9) 07/26/17 04:45 Baso % 0.4 % (0.2-1.0) 07/26/17 04:45 Neut # 10.4 x10^3/uL (2.2-4.8) H 07/26/17 04:45 Lymph # 1.6 X10^3/uL (1.3-2.9) 07/26/17 04:45 [place] # 0.8 x10^3/uL (0.3-0.8) 07/26/17 04:45 Eos # 0.1 x10^3/uL (0.0-0.2) 07/26/17 04:45 Baso # 0.0 X10^3/uL (0.0-0.1) 07/26/17 04:45 Absolute Nucleated RBC 0.0 /100WBC 07/26/17 04:45 INR Target Range - 07/22/17 03:15 INR 1.16 (0.8-1.3) 07/22/17 03:15 PTT 25.0 SECONDS (22.9-36.5) 07/22/17 03:15 PTT Comment - 07/22/17 03:15 Sample Site R rad 07/25/17 06:06 ABG pH 7.500 (7.35-7.45) H 07/25/17 06:06 ABG pCO2 44.0 mmHg (35.0-45.0) 07/25/17 06:06 ABG pO2 58.0 mmHg (80.0-100.0) L 07/25/17 06:06 ABG HCO3 34.3 mmol/L (22-26) H* 07/25/17 06:06 ABG O2 Saturation 92.0 % (90-100) 07/25/17 06:06 ABG Base Excess 10.0 mmol/L (-2.0-2.0) H 07/25/17 06:06 Raf Test Pos 07/25/17 06:06 A-a Gradient 115.0 mmHg 07/25/17 06:06 FiO2 32.000 07/25/17 06:06 Blood Gas Comments Darrius well, afh 07/25/17 06:06 Sodium 144 mmol/L (136-145) 07/26/17 04:45 Corrected Sodium 147 mmol/L (136-145) H 07/26/17 04:45 Potassium 3.9 mmol/L (3.5-5.1) 07/26/17 04:45 Chloride 104 mmol/L (98-107) 07/26/17 04:45 Carbon Dioxide 29.1 mmol/L (21-32) 07/26/17 04:45 BUN 14 mg/dL (7-18) 07/26/17 04:45 Creatinine 1.37 mg/dL (0.70-1.30) H 07/26/17 04:45 Est GFR (MDRD) Af Amer > 60 (>60) 07/26/17 04:45 Est GFR (MDRD) Non-Af > 60 (>60) 07/26/17 04:45 Glucose 233 mg/dL (65-99) H 07/26/17 04:45 POC Glucose (mg/dL) 244 mg/dL (65-99) H 07/26/17 12:03 Hemoglobin A1c 10.4 % (4.5-6.2) H 07/26/17 04:45 Lactic Acid 5.6 mmol/L (0.4-2.0) H 07/21/17 17:17 Calcium 9.3 mg/dL (8.5-10.1) 07/26/17 04:45 Corrected Calcium 9.9 mg/dL (8.5-10.1) 07/26/17 04:45 Total Bilirubin 1.00 mg/dL (0.2-1.0) 07/26/17 04:45 AST 30 Units/L (15-37) 07/26/17 04:45 ALT 30 Units/L (12-78) 07/26/17 04:45 Alkaline Phosphatase 62 Units/L (46-116) 07/26/17 04:45 Creatine Kinase 207 Units/L (39-308) 07/24/17 17:39 CK-MB (CK-2) < 1.0 ng/mL (0-4.0) 07/24/17 17:39 CK/CKMB % Calc 0.5 % (<4) 07/24/17 17:39 Troponin I < 0.02 ng/mL (0-1.5) 07/24/17 17:39 Total Protein 7.4 g/dL (6.4-8.2) 07/26/17 04:45 Albumin 3.2 g/dL (3.4-5.0) L 07/26/17 04:45 Globulin 4.2 g/dL (2.5-4.5) 07/26/17 04:45 Albumin/Globulin Ratio 0.8 Ratio (1.1-2.1) L 07/26/17 04:45 Triglycerides 219 mg/dL (0-150) H 07/23/17 05:45 Cholesterol 274 mg/dL (0-200) H 07/23/17 05:45 LDL Cholesterol, Calc 193 mg/dL (0-100) H 07/23/17 05:45 HDL Cholesterol 37 mg/dL (40-60) L 07/23/17 05:45 Cholesterol/HDL Ratio 7.4 (0.0-5.0) H 07/23/17 05:45 Specimen Type Random urine 07/21/17 15:56 Urine Color Yellow (YELLOW) 07/21/17 15:56 Urine Appearance Slightly hazy (CLEAR) 07/21/17 15:56 Urine pH 5.0 (5.0 - 8.0) 07/21/17 15:56 Ur Specific [place] 1.015 (1.000-1.030) 07/21/17 15:56 Urine Protein 3+ (NEGATIVE) 07/21/17 15:56 Urine Glucose (UA) 4+ (NEGATIVE) 07/21/17 15:56 Urine Ketones 2+ (NEGATIVE) 07/21/17 15:56 Urine Occult Blood 2+ (NEGATIVE) 07/21/17 15:56 Urine Nitrite Negative (NEGATIVE) 07/21/17 15:56 Urine Bilirubin Negative (NEGATIVE) 07/21/17 15:56 Urine Acetone Small (NEGATIVE) 07/25/17 05:15 Urine Urobilinogen Normal (NORMAL) 07/21/17 15:56 Ur Leukocyte Esterase Negative (NEGATIVE) 07/21/17 15:56 Urine RBC 1-3 /HPF (NEGATIVE) 07/21/17 15:56 Urine WBC 5-7 /HPF (NEGATIVE) 07/21/17 15:56 Ur Squamous Epith Cells Rare /HPF (NEGATIVE) 07/21/17 15:56 Amorphous Sediment 1+ /HPF (NEGATIVE) 07/21/17 15:56 Urine Bacteria 1+ /HPF (NEGATIVE) 07/21/17 15:56 Ur Culture Indicated? No/not indicated 07/21/17 15:56 Acetone, Semi-Quant Negative (NEGATIVE) 07/25/17 04:25 - Plan (1) Atelectasis Status: Acute Plan: ADD ZITHROMAX. O2. DEEP BREATHS AND COUGH. (2) DKA (diabetic ketoacidoses) Status: Acute Qualifiers: Diabetes mellitus type: type 2 Diabetes mellitus complication detail: without coma Qualified Code(s): E13.10 - Other specified diabetes mellitus with ketoacidosis without coma Plan: LEVEMIR 10 UNITS BID, METFORMIN 500MG BID, SLIDING SCALE INSULIN, OTBS Q2H , MONITOR URINE ACETONES, CONTINUE TO MONITOR (3) Diabetes mellitus, new onset Status: Acute Plan: LEVEMIR 10 UNITS BID, METFORMIN 500MG BID, SLIDING SCALE INSULIN, OTBS Q2H , MONITOR URINE ACETONES, CONTINUE TO MONITOR (4) Fever Status: Acute Plan: IV ANTIBIOTICS (5) UTI (urinary tract infection) Status: Acute Qualifiers: Urinary tract infection type: site unspecified Hematuria presence: without hematuria Qualified Code(s): N39.0 - Urinary tract infection, site not specified Plan: ROCEPHIN 1GM IV DAILY, CONTINUE TO MONITOR
--- NOTE | 2017-07-26 22:22 | PCM.PROG ---
Progress Note - Progress Note for Day of Date: 07/26/17 - Subjective Subjective: WAS ADMITTED FOR NEW ONSET DIABETES, DKA, AND UTI. TODAY, HE IS ALERT AND ORIENTED, SITTING UP IN CHAIR ON ROUNDS. PATIENT'S IS AT BEDSIDE. PATIENT CONTINUES TO UTILIZE OXYGEN. STATES THAT HE HAD EPISODE WHERE HE GOT SWEATY BUT DENIES FEELING LIKE HE WAS ABOUT TO PASS OUT. O2 SATS REMAIN MILDLY LOW. STATES THAT HE DOES FEEL BETTER. - Past Medical Family Social History Past Med/Fam/Surg Hx: No changes since H&P Allergies: Allergies No Known Drug Allergies Allergy (Verified 07/21/17 15:37) - Review of Systems ROS: No change since H&P - Vital Signs and I&O's Vital Signs: Temperature 98.3 F Pulse Rate [Right Brachial] 113 Pulse Rate 100 Respiratory Rate 28 Blood Pressure [Right Arm] 154/79 Blood Pressure 136/95 O2 Sat by Pulse Oximetry 90 Intake and Output: Intake & Output 07/24/17 07/25/17 07/26/17 07/27/17 11:59 11:59 11:59 11:59 Intake Total 2199 5240 5315 1726 Output Total 1225 1150 200 Balance 974 5240 4165 1526 - Physical Exam Oriented: Normal Eyes: Normal Ear: Normal Nose: Normal Throat: Normal Respiratory: Diminished Cardiovascular: Tachycardia : Frequency Auscultation: Bowel Sounds: Normal Palpation: Normal Tenderness: Normal Skin: Normal Musculoskeletal: Right, Ankle, Swelling, Tender Psychiatric: Normal Mood Description: Calm Affect: Normal Speech Pattern: Clear, Appropriate - Laboratory and Diagnostics Result Diagrams: 07/26/17 04:45 07/26/17 04:45 Labs: 07/22/17 18:15 Urine,Clean Catch Urine Culture - Final 07/21/17 17:17 Blood Blood Culture - Preliminary 07/21/17 17:17 Blood Blood Culture - Preliminary Laboratory WBC 13.0 X10^3/uL (3.6-10.0) H 07/26/17 04:45 RBC 4.95 X10^6/uL (4.7-6.0) 07/26/17 04:45 Hgb 14.3 g/dL (13.5-18.0) 07/26/17 04:45 Hct 41.9 % (42.0-54.0) L 07/26/17 04:45 MCV 84.7 fL (80.0-100.0) 07/26/17 04:45 MCH 28.9 pg (27.0-34.0) 07/26/17 04:45 MCHC 34.1 g/dL (33.0-35.0) 07/26/17 04:45 RDW 13.9 % (11.6-16.5) 07/26/17 04:45 Plt Count 76 X10^3/uL (150.0-450.0) L 07/26/17 04:45 MPV 10.0 fL (7.4-11.0) 07/26/17 04:45 Neut % 80.2 % (42.0-75.0) H 07/26/17 04:45 Lymph % 12.0 % (21.0-51.0) L 07/26/17 04:45 [place] % 6.3 % (0.0-13.0) 07/26/17 04:45 Eos % 1.1 % (0.9-2.9) 07/26/17 04:45 Baso % 0.4 % (0.2-1.0) 07/26/17 04:45 Neut # 10.4 x10^3/uL (2.2-4.8) H 07/26/17 04:45 Lymph # 1.6 X10^3/uL (1.3-2.9) 07/26/17 04:45 [place] # 0.8 x10^3/uL (0.3-0.8) 07/26/17 04:45 Eos # 0.1 x10^3/uL (0.0-0.2) 07/26/17 04:45 Baso # 0.0 X10^3/uL (0.0-0.1) 07/26/17 04:45 Absolute Nucleated RBC 0.0 /100WBC 07/26/17 04:45 INR Target Range - 07/22/17 03:15 INR 1.16 (0.8-1.3) 07/22/17 03:15 PTT 25.0 SECONDS (22.9-36.5) 07/22/17 03:15 PTT Comment - 07/22/17 03:15 Sample Site R rad 07/25/17 06:06 ABG pH 7.500 (7.35-7.45) H 07/25/17 06:06 ABG pCO2 44.0 mmHg (35.0-45.0) 07/25/17 06:06 ABG pO2 58.0 mmHg (80.0-100.0) L 07/25/17 06:06 ABG HCO3 34.3 mmol/L (22-26) H* 07/25/17 06:06 ABG O2 Saturation 92.0 % (90-100) 07/25/17 06:06 ABG Base Excess 10.0 mmol/L (-2.0-2.0) H 07/25/17 06:06 Raf Test Pos 07/25/17 06:06 A-a Gradient 115.0 mmHg 07/25/17 06:06 FiO2 32.000 07/25/17 06:06 Blood Gas Comments Darrius well, afh 07/25/17 06:06 Sodium 144 mmol/L (136-145) 07/26/17 04:45 Corrected Sodium 147 mmol/L (136-145) H 07/26/17 04:45 Potassium 3.9 mmol/L (3.5-5.1) 07/26/17 04:45 Chloride 104 mmol/L (98-107) 07/26/17 04:45 Carbon Dioxide 29.1 mmol/L (21-32) 07/26/17 04:45 BUN 14 mg/dL (7-18) 07/26/17 04:45 Creatinine 1.37 mg/dL (0.70-1.30) H 07/26/17 04:45 Est GFR (MDRD) Af Amer > 60 (>60) 07/26/17 04:45 Est GFR (MDRD) Non-Af > 60 (>60) 07/26/17 04:45 Glucose 233 mg/dL (65-99) H 07/26/17 04:45 POC Glucose (mg/dL) 244 mg/dL (65-99) H 07/26/17 12:03 Hemoglobin A1c 10.4 % (4.5-6.2) H 07/26/17 04:45 Lactic Acid 5.6 mmol/L (0.4-2.0) H 07/21/17 17:17 Calcium 9.3 mg/dL (8.5-10.1) 07/26/17 04:45 Corrected Calcium 9.9 mg/dL (8.5-10.1) 07/26/17 04:45 Total Bilirubin 1.00 mg/dL (0.2-1.0) 07/26/17 04:45 AST 30 Units/L (15-37) 07/26/17 04:45 ALT 30 Units/L (12-78) 07/26/17 04:45 Alkaline Phosphatase 62 Units/L (46-116) 07/26/17 04:45 Creatine Kinase 207 Units/L (39-308) 07/24/17 17:39 CK-MB (CK-2) < 1.0 ng/mL (0-4.0) 07/24/17 17:39 CK/CKMB % Calc 0.5 % (<4) 07/24/17 17:39 Troponin I < 0.02 ng/mL (0-1.5) 07/24/17 17:39 Total Protein 7.4 g/dL (6.4-8.2) 07/26/17 04:45 Albumin 3.2 g/dL (3.4-5.0) L 07/26/17 04:45 Globulin 4.2 g/dL (2.5-4.5) 07/26/17 04:45 Albumin/Globulin Ratio 0.8 Ratio (1.1-2.1) L 07/26/17 04:45 Triglycerides 219 mg/dL (0-150) H 07/23/17 05:45 Cholesterol 274 mg/dL (0-200) H 07/23/17 05:45 LDL Cholesterol, Calc 193 mg/dL (0-100) H 07/23/17 05:45 HDL Cholesterol 37 mg/dL (40-60) L 07/23/17 05:45 Cholesterol/HDL Ratio 7.4 (0.0-5.0) H 07/23/17 05:45 Specimen Type Random urine 07/21/17 15:56 Urine Color Yellow (YELLOW) 07/21/17 15:56 Urine Appearance Slightly hazy (CLEAR) 07/21/17 15:56 Urine pH 5.0 (5.0 - 8.0) 07/21/17 15:56 Ur Specific [place] 1.015 (1.000-1.030) 07/21/17 15:56 Urine Protein 3+ (NEGATIVE) 07/21/17 15:56 Urine Glucose (UA) 4+ (NEGATIVE) 07/21/17 15:56 Urine Ketones 2+ (NEGATIVE) 07/21/17 15:56 Urine Occult Blood 2+ (NEGATIVE) 07/21/17 15:56 Urine Nitrite Negative (NEGATIVE) 07/21/17 15:56 Urine Bilirubin Negative (NEGATIVE) 07/21/17 15:56 Urine Acetone Small (NEGATIVE) 07/25/17 05:15 Urine Urobilinogen Normal (NORMAL) 07/21/17 15:56 Ur Leukocyte Esterase Negative (NEGATIVE) 07/21/17 15:56 Urine RBC 1-3 /HPF (NEGATIVE) 07/21/17 15:56 Urine WBC 5-7 /HPF (NEGATIVE) 07/21/17 15:56 Ur Squamous Epith Cells Rare /HPF (NEGATIVE) 07/21/17 15:56 Amorphous Sediment 1+ /HPF (NEGATIVE) 07/21/17 15:56 Urine Bacteria 1+ /HPF (NEGATIVE) 07/21/17 15:56 Ur Culture Indicated? No/not indicated 07/21/17 15:56 Acetone, Semi-Quant Negative (NEGATIVE) 07/25/17 04:25 - Plan (1) Atelectasis Status: Acute Plan: ROCEPHIN/ZITHROMAX. O2. DEEP BREATHS AND COUGH. CT OF CHEST (2) DKA (diabetic ketoacidoses) Status: Acute Qualifiers: Diabetes mellitus type: type 2 Diabetes mellitus complication detail: without coma Qualified Code(s): E13.10 - Other specified diabetes mellitus with ketoacidosis without coma Plan: LEVEMIR 10 UNITS BID, METFORMIN 500MG BID, SLIDING SCALE INSULIN, OTBS Q2H , MONITOR URINE ACETONES, CONTINUE TO MONITOR (3) Diabetes mellitus, new onset Status: Acute Plan: LEVEMIR 10 UNITS BID, METFORMIN 500MG BID, SLIDING SCALE INSULIN, OTBS Q2H , MONITOR URINE ACETONES, CONTINUE TO MONITOR (4) Fever Status: Acute Plan: IV ANTIBIOTICS (5) UTI (urinary tract infection) Status: Acute Qualifiers: Urinary tract infection type: site unspecified Hematuria presence: without hematuria Qualified Code(s): N39.0 - Urinary tract infection, site not specified Plan: ROCEPHIN 1GM IV DAILY, CONTINUE TO MONITOR
[2017-07-26] MEDS ORDERED: NS 1000 ML 0 ML ONE (22:23)
[2017-07-26] MEDS: MAXIPIME 2 GM in NS 100 ML IV + SPIKE MINIBAG* 100 ML IV SCH (22:37)
[2017-07-26] MEDS ORDERED: LEVAQUIN PREMIX IV 500 MG 500 MG/100 ML BAG IV SCH (23:00)
[2017-07-27] MEDS: NS 1/2 1000 ML IV 1,000 ML with SODIUM BICARBONATE 8.4% INJ ADULT 50 ML IV SCH ×2 (03:22)
[2017-07-27 05:21] LABS: BASOPHILS % (AUTO) 0.4 % (0.2-1.0); EOSINOPHILS # (AUTO) 0.2 x10^3/uL (0.0-0.2); EOSINOPHILS % (AUTO) 1.7 % (0.9-2.9); HEMATOCRIT 37.9 % (42.0-54.0); HEMOGLOBIN 13.1 g/dL (13.5-18.0); LYMPHOCYTES # (AUTO) 1.8 X10^3/uL (1.3-2.9); LYMPHOCYTES % (AUTO) 13.4 % (21.0-51.0); MEAN CORPUSCULAR HEMOGLOBIN 28.8 pg (27.0-34.0); MEAN CORPUSCULAR HGB CONC 34.5 g/dL (33.0-35.0); MEAN CORPUSCULAR VOLUME 83.5 fL (80.0-100.0); MEAN PLATELET VOLUME 9.8 fL (7.4-11.0); MONOCYTES # (AUTO) 1.1 x10^3/uL (0.3-0.8); MONOCYTES % (AUTO) 8.6 % (0.0-13.0); NEUTROPHILS # (AUTO) 9.9 x10^3/uL (2.2-4.8); NEUTROPHILS % (AUTO) 75.9 % (42.0-75.0); PLATELET COUNT 83 X10^3/uL (150.0-450.0); RED BLOOD COUNT 4.53 X10^6/uL (4.7-6.0); RED CELL DISTRIBUTION WIDTH 13.6 % (11.6-16.5)
[2017-07-27 05:37] LABS: ALANINE AMINOTRANSFERASE 31 Units/L (12-78); ALBUMIN 2.9 g/dL (3.4-5.0); ALKALINE PHOSPHATASE 66 Units/L (46-116); ASPARTATE AMINO TRANSFERASE 34 Units/L (15-37); BLOOD UREA NITROGEN 12 mg/dL (7-18); CALCIUM 8.9 mg/dL (8.5-10.1); CARBON DIOXIDE 28.2 mmol/L (21-32); CHLORIDE 105 mmol/L (98-107); COR CA(FOR HYPOALB) 9.8 mg/dL (8.5-10.1); COR NA(FOR HYPERGLY) 146 mmol/L (136-145); CREATININE 1.25 mg/dL (0.70-1.30); SODIUM 143 mmol/L (136-145); TOTAL PROTEIN 7.1 g/dL (6.4-8.2); eGFR BLACK RACES > 60 (>60); eGFR NON BLACK RACES > 60 (>60)
[2017-07-27] MEDS: HumuLIN R SC PRN (06:03)
[2017-07-27] MEDS: GLUCOPHAGE PO SCH (06:03)
[2017-07-27] MEDS: NYSTATIN SUSP MT SCH (08:00)
[2017-07-27] MEDS: ZITHROMAX INJ 500 MG VIAL 500 MG in NS 250 ML IV 250 ML IV SCH (08:00)
[2017-07-27] MEDS: ECOTRIN TAB 325 MG PO SCH (08:00)
[2017-07-27] MEDS: FLONASE NASAL SPRAY ENOSTRIL SCH (08:00)
[2017-07-27] MEDS: ZESTRIL TAB 10 MG PO SCH (08:27)
[2017-07-27] MEDS: MAXIPIME 2 GM in NS 100 ML IV + SPIKE MINIBAG* 100 ML IV SCH (08:27)
[2017-07-27 10:04] VITALS: BP 148/77
--- NOTE | 2017-07-27 11:40 | PCM.PROG ---
Progress Note - Progress Note for Day of Date: 07/23/17 - Subjective Subjective: WAS ADMITTED FOR NEW ONSET DIABETES, DKA, AND UTI. TODAY, HE IS ALERT AND ORIENTED, LYING IN BED ON MORNING ROUNDS. PATIENT'S IS AT BEDSIDE. TODAY, HE CONTINUES WITH COMPLAINTS OF WEAKNESS AND COMPLAINS OF SHORTNESS OF BREATH. ON EXAMINATION, LUNGS SOUNDS ARE DIMINISHED. ABDOMEN IS ROUND, FIRM, AND NON-TENDER. NORMAL BOWEL SOUNDS ARE NOTED IN ALL QUADRANTS. RIGHT ANKLE IS NOTED WITH EDEMA. NO SIGNS OR SYMPTOMS OF INFECTION TO SITE ARE NOTED. THE INUSLIN DRIP WAS DISCONTINUED YESTERDAY, HOWEVER, PATIENTS BLOOD SUGAR REMAINED HIGH THROUGHOUT THE AFTERNOON AND INTO THE NIGHT, THEREFORE, THE INUSLIN DRIP WAS STARTED BACK. HE IS UTILIZING OXYGEN VIA NASAL CANNULA AT 2L/ MIN. PATIENT IS ON TELEMETRY. SINUS RHYTHM IS NOTED WITH HR AT 108. HIS VITAL SIGNS THIS MORNING ARE 97.5-108-27-92%-153/94. A CBC AND BMP WERE OBTAINED. ABNORMAL LAB VALUES INCLUDE THE FOLLOWING: WBC 15.3, SODIUM 157, CHLORIDE 118, BUN 33, CREATININE 1.87, GLUCOSE 304, TRIGLYCERIDES 219, CHOLESTEROL 274, LDL 193, HDL 37, RATIO 7.4. ACETONES ARE SMALL. AN ABG WAS OBTAINED. IT REPORTED PH 7.5, P02 58, HC03 34.3, BASE EXCESS 10. TODAY, WE WILL CONTINUE ON NORMAL SALINE WITH 1 AMP OF BICARB AT 150ML/HR, INCREASE LEVEMIR TO 20 UNITS SQ BID, START ROSOUVASTATIN 10MG HS, START ECOTRIN 325MG DAILY, AND START LISINOPRIL 10MG HS. THE INSULIN DRIP WILL BE DISCONTINUED. WE WILL CONSULT WITH THE [employer] FOR DIABETIC DIET TEACHING. OTHERWISE, WE PLAN TO FOLLOW UP WITH AM LABS AND CONTINUE TO MONITOR PATIENT. - Past Medical Family Social History Past Med/Fam/Surg Hx: No changes since H&P Allergies: Allergies No Known Drug Allergies Allergy (Verified 07/21/17 15:37) - Review of Systems ROS: No change since H&P - Vital Signs and I&O's Vital Signs: Temperature 97.4 F Pulse Rate [Right Brachial] 114 Pulse Rate 100 Respiratory Rate 40 Blood Pressure [Right Arm] 148/77 Blood Pressure 136/95 O2 Sat by Pulse Oximetry 94 Intake and Output: Intake & Output 07/24/17 07/25/17 07/26/1716/17 11:59 11:59 11:59 11:59 Intake Total 2199 5262 5390 384 Output Total 1225 1150 200 Balance 974 5240 0978 [id number] - Physical Exam Oriented: Normal Eyes: Normal Ear: Normal Nose: Normal Throat: Normal Respiratory: Diminished Cardiovascular: Tachycardia : Frequency Auscultation: Bowel Sounds: Normal Palpation: Normal Tenderness: Normal Skin: Normal Musculoskeletal: Right, Ankle, Swelling, Tender Psychiatric: Normal Mood Description: Calm Affect: Normal Speech Pattern: Clear, Appropriate - Laboratory and Diagnostics Result Diagrams: 07/27/17 04:45 07/27/17 04:45 Labs: 07/21/17 17:17 Blood Blood Culture - Final 07/21/17 17:17 Blood Blood Culture - Final 07/22/17 18:15 Urine,Clean Catch Urine Culture - Final Laboratory WBC 13.0 X10^3/uL (3.6-10.0) H 07/27/17 04:45 RBC 4.53 X10^6/uL (4.7-6.0) L 07/27/17 04:45 Hgb 13.1 g/dL (13.5-18.0) L 07/27/17 04:45 Hct 37.9 % (42.0-54.0) L 07/27/17 04:45 MCV 83.5 fL (80.0-100.0) 07/27/17 04:45 MCH 28.8 pg (27.0-34.0) 07/27/17 04:45 MCHC 34.5 g/dL (33.0-35.0) 07/27/17 04:45 RDW 13.6 % (11.6-16.5) 07/27/17 04:45 Plt Count 83 X10^3/uL (150.0-450.0) L 07/27/17 04:45 MPV 9.8 fL (7.4-11.0) 07/27/17 04:45 Neut % 75.9 % (42.0-75.0) H 07/27/17 04:45 Lymph % 13.4 % (21.0-51.0) L 07/27/17 04:45 [place] % 8.6 % (0.0-13.0) 07/27/17 04:45 Eos % 1.7 % (0.9-2.9) 07/27/17 04:45 Baso % 0.4 % (0.2-1.0) 07/27/17 04:45 Neut # 9.9 x10^3/uL (2.2-4.8) H 07/27/17 04:45 Lymph # 1.8 X10^3/uL (1.3-2.9) 07/27/17 04:45 [place] # 1.1 x10^3/uL (0.3-0.8) H 07/27/17 04:45 Eos # 0.2 x10^3/uL (0.0-0.2) 07/27/17 04:45 Baso # 0.0 X10^3/uL (0.0-0.1) 07/27/17 04:45 Absolute Nucleated RBC 0.0 /100WBC 07/27/17 04:45 INR Target Range - 07/22/17 03:15 INR 1.16 (0.8-1.3) 07/22/17 03:15 PTT 25.0 SECONDS (22.9-36.5) 07/22/17 03:15 PTT Comment - 07/22/17 03:15 Sample Site R rad 07/25/17 06:06 ABG pH 7.500 (7.35-7.45) H 07/25/17 06:06 ABG pCO2 44.0 mmHg (35.0-45.0) 07/25/17 06:06 ABG pO2 58.0 mmHg (80.0-100.0) L 07/25/17 06:06 ABG HCO3 34.3 mmol/L (22-26) H* 07/25/17 06:06 ABG O2 Saturation 92.0 % (90-100) 07/25/17 06:06 ABG Base Excess 10.0 mmol/L (-2.0-2.0) H 07/25/17 06:06 Raf Test Pos 07/25/17 06:06 A-a Gradient 115.0 mmHg 07/25/17 06:06 FiO2 32.000 07/25/17 06:06 Blood Gas Comments Darrius well, afh 07/25/17 06:06 Sodium 143 mmol/L (136-145) 07/27/17 04:45 Corrected Sodium 146 mmol/L (136-145) H 07/27/17 04:45 Potassium 3.8 mmol/L (3.5-5.1) 07/27/17 04:45 Chloride 105 mmol/L (98-107) 07/27/17 04:45 Carbon Dioxide 28.2 mmol/L (21-32) 07/27/17 04:45 BUN 12 mg/dL (7-18) 07/27/17 04:45 Creatinine 1.25 mg/dL (0.70-1.30) 07/27/17 04:45 Est GFR (MDRD) Af Amer > 60 (>60) 07/27/17 04:45 Est GFR (MDRD) Non-Af > 60 (>60) 07/27/17 04:45 Glucose 207 mg/dL (65-99) H 07/27/17 04:45 POC Glucose (mg/dL) 226 mg/dL (65-99) H 07/27/17 05:34 Hemoglobin A1c 10.4 % (4.5-6.2) H 07/26/17 04:45 Lactic Acid 5.6 mmol/L (0.4-2.0) H 07/21/17 17:17 Calcium 8.9 mg/dL (8.5-10.1) 07/27/17 04:45 Corrected Calcium 9.8 mg/dL (8.5-10.1) 07/27/17 04:45 Total Bilirubin 0.70 mg/dL (0.2-1.0) 07/27/17 04:45 AST 34 Units/L (15-37) 07/27/17 04:45 ALT 31 Units/L (12-78) 07/27/17 04:45 Alkaline Phosphatase 66 Units/L (46-116) 07/27/17 04:45 Creatine Kinase 207 Units/L (39-308) 07/24/17 17:39 CK-MB (CK-2) < 1.0 ng/mL (0-4.0) 07/24/17 17:39 CK/CKMB % Calc 0.5 % (<4) 07/24/17 17:39 Troponin I < 0.02 ng/mL (0-1.5) 07/24/17 17:39 Total Protein 7.1 g/dL (6.4-8.2) 07/27/17 04:45 Albumin 2.9 g/dL (3.4-5.0) L 07/27/17 04:45 Globulin 4.2 g/dL (2.5-4.5) 07/27/17 04:45 Albumin/Globulin Ratio 0.7 Ratio (1.1-2.1) L 07/27/17 04:45 Triglycerides 219 mg/dL (0-150) H 07/23/17 05:45 Cholesterol 274 mg/dL (0-200) H 07/23/17 05:45 LDL Cholesterol, Calc 193 mg/dL (0-100) H 07/23/17 05:45 HDL Cholesterol 37 mg/dL (40-60) L 07/23/17 05:45 Cholesterol/HDL Ratio 7.4 (0.0-5.0) H 07/23/17 05:45 Specimen Type Random urine 07/21/17 15:56 Urine Color Yellow (YELLOW) 07/21/17 15:56 Urine Appearance Slightly hazy (CLEAR) 07/21/17 15:56 Urine pH 5.0 (5.0 - 8.0) 07/21/17 15:56 Ur Specific [place] 1.015 (1.000-1.030) 07/21/17 15:56 Urine Protein 3+ (NEGATIVE) 07/21/17 15:56 Urine Glucose (UA) 4+ (NEGATIVE) 07/21/17 15:56 Urine Ketones 2+ (NEGATIVE) 07/21/17 15:56 Urine Occult Blood 2+ (NEGATIVE) 07/21/17 15:56 Urine Nitrite Negative (NEGATIVE) 07/21/17 15:56 Urine Bilirubin Negative (NEGATIVE) 07/21/17 15:56 Urine Acetone Small (NEGATIVE) 07/25/17 05:15 Urine Urobilinogen Normal (NORMAL) 07/21/17 15:56 Ur Leukocyte Esterase Negative (NEGATIVE) 07/21/17 15:56 Urine RBC 1-3 /HPF (NEGATIVE) 07/21/17 15:56 Urine WBC 5-7 /HPF (NEGATIVE) 07/21/17 15:56 Ur Squamous Epith Cells Rare /HPF (NEGATIVE) 07/21/17 15:56 Amorphous Sediment 1+ /HPF (NEGATIVE) 07/21/17 15:56 Urine Bacteria 1+ /HPF (NEGATIVE) 07/21/17 15:56 Ur Culture Indicated? No/not indicated 07/21/17 15:56 Acetone, Semi-Quant Negative (NEGATIVE) 07/25/17 04:25 - Plan (1) DKA (diabetic ketoacidoses) Status: Acute Qualifiers: Diabetes mellitus type: type 2 Diabetes mellitus complication detail: without coma Qualified Code(s): E13.10 - Other specified diabetes mellitus with ketoacidosis without coma Plan: LEVEMIR 10 UNITS BID, METFORMIN 500MG BID, SLIDING SCALE INSULIN, OTBS Q2H , MONITOR URINE ACETONES, CONTINUE TO MONITOR (2) Diabetes mellitus, new onset Status: Acute Plan: LEVEMIR 20 UNITS BID, METFORMIN 500MG BID, SLIDING SCALE INSULIN, OTBS Q2H , MONITOR URINE ACETONES, CONTINUE TO MONITOR (3) UTI (urinary tract infection) Status: Acute Qualifiers: Urinary tract infection type: site unspecified Hematuria presence: without hematuria Qualified Code(s): N39.0 - Urinary tract infection, site not specified Plan: ROCEPHIN 1GM IV DAILY, CONTINUE TO MONITOR (4) Hyperlipidemia Status: Acute Qualifiers: Hyperlipidemia type: mixed hyperlipidemia Qualified Code(s): E78.2 - Mixed hyperlipidemia Plan: START ROSUVASTATIN 10GM HS, START ECOTRIN 325MG DAILY, CONTINUE TO MONITOR (5) Hypertension Status: Acute Qualifiers: Hypertension type: essential hypertension Qualified Code(s): I10 - Essential (primary) hypertension Plan: START LISINOPRIL 10MG HS, CONTINUE TO MONITOR
--- NOTE | 2017-07-27 21:39 | PCM.PROG ---
Progress Note - Progress Note for Day of Date: 07/24/17 - Subjective Subjective: WAS ADMITTED FOR NEW ONSET DIABETES, DKA, AND UTI. TODAY, HE IS ALERT AND ORIENTED, LYING IN BED ON MORNING ROUNDS. PATIENT'S DAUGHTER IS AT BEDSIDE. TODAY, HE CONTINUES WITH COMPLAINTS OF WEAKNESS AND COMPLAINS OF SHORTNESS OF BREATH. ON EXAMINATION, LUNGS SOUNDS ARE DIMINISHED. ABDOMEN IS ROUND, FIRM, AND NON-TENDER. NORMAL BOWEL SOUNDS ARE NOTED IN ALL QUADRANTS. RIGHT ANKLE CONTINUES WITH EDEMA, BUT IS IMPROVING. NO SIGNS OR SYMPTOMS OF INFECTION TO SITE ARE NOTED. HE IS UTILIZING OXYGEN VIA NASAL CANNULA AT 2L/ MIN. PATIENT IS ON TELEMETRY. SINUS RHYTHM IS NOTED WITH HR AT 101. HIS VITAL SIGNS THIS MORNING ARE 97.9-101-25-94%-142/89. A CBC AND BMP WERE OBTAINED. ABNORMAL LAB VALUES INCLUDE THE FOLLOWING: WBC 11.0, SODIUM 154, CHLORIDE 114, BUN 24, CREATININE 1.65, GLUCOSE 324. ACETONES ARE SMALL. AN ABG WAS OBTAINED. IT REPORTED PH 7.480, P02 48, HC03 32, BASE EXCESS 7.6. TODAY, WE WILL DISCONTINUE NORMAL SALINE WITH 1 AMP OF BICARB AT 150ML/HR AND START NS WITH 1 AMP BICARB, WE WILL DISCONTINUE THE LEVEMIR AND START HUMULIN N 35 UNITS BID. WE WILL INCREASE THE LISINOPRIL TO 20MG HS AND INCREASE THE METFORMIN TO 850MG BID. WE WILL CONTINUE WITH DIABETIC TEACHING. OTHERWISE, WE PLAN TO FOLLOW UP WITH AM LABS AND CONTINUE TO MONITOR PATIENT. - Past Medical Family Social History Past Med/Fam/Surg Hx: No changes since H&P Allergies: Allergies No Known Drug Allergies Allergy (Verified 07/21/17 15:37) - Review of Systems ROS: No change since H&P - Vital Signs and I&O's Vital Signs: Temperature 97.4 F Pulse Rate [Right Brachial] 114 Pulse Rate 100 Respiratory Rate 40 Blood Pressure [Right Arm] 148/77 Blood Pressure 136/95 O2 Sat by Pulse Oximetry 94 Intake and Output: Intake & Output 07/25/17 07/26/17 07/27/17 07/28/17 11:59 11:59 11:59 11:59 Intake Total 5240 5339 3846 Output Total 1150 200 Balance 5240 4169 4866 - Physical Exam Oriented: Normal Eyes: Normal Ear: Normal Nose: Normal Throat: Normal Respiratory: Diminished Cardiovascular: Tachycardia : Frequency Auscultation: Bowel Sounds: Normal Palpation: Normal Tenderness: Normal Skin: Normal Musculoskeletal: Right, Ankle, Swelling, Tender Psychiatric: Normal Mood Description: Calm Affect: Normal Speech Pattern: Clear, Appropriate - Laboratory and Diagnostics Result Diagrams: 07/27/17 04:45 07/27/17 04:45 Labs: 07/21/17 17:17 Blood Blood Culture - Final 07/21/17 17:17 Blood Blood Culture - Final 07/22/17 18:15 Urine,Clean Catch Urine Culture - Final Laboratory WBC 13.0 X10^3/uL (3.6-10.0) H 07/27/17 04:45 RBC 4.53 X10^6/uL (4.7-6.0) L 07/27/17 04:45 Hgb 13.1 g/dL (13.5-18.0) L 07/27/17 04:45 Hct 37.9 % (42.0-54.0) L 07/27/17 04:45 MCV 83.5 fL (80.0-100.0) 07/27/17 04:45 MCH 28.8 pg (27.0-34.0) 07/27/17 04:45 MCHC 34.5 g/dL (33.0-35.0) 07/27/17 04:45 RDW 13.6 % (11.6-16.5) 07/27/17 04:45 Plt Count 83 X10^3/uL (150.0-450.0) L 07/27/17 04:45 MPV 9.8 fL (7.4-11.0) 07/27/17 04:45 Neut % 75.9 % (42.0-75.0) H 07/27/17 04:45 Lymph % 13.4 % (21.0-51.0) L 07/27/17 04:45 [place] % 8.6 % (0.0-13.0) 07/27/17 04:45 Eos % 1.7 % (0.9-2.9) 07/27/17 04:45 Baso % 0.4 % (0.2-1.0) 07/27/17 04:45 Neut # 9.9 x10^3/uL (2.2-4.8) H 07/27/17 04:45 Lymph # 1.8 X10^3/uL (1.3-2.9) 07/27/17 04:45 [place] # 1.1 x10^3/uL (0.3-0.8) H 07/27/17 04:45 Eos # 0.2 x10^3/uL (0.0-0.2) 07/27/17 04:45 Baso # 0.0 X10^3/uL (0.0-0.1) 07/27/17 04:45 Absolute Nucleated RBC 0.0 /100WBC 07/27/17 04:45 INR Target Range - 07/22/17 03:15 INR 1.16 (0.8-1.3) 07/22/17 03:15 PTT 25.0 SECONDS (22.9-36.5) 07/22/17 03:15 PTT Comment - 07/22/17 03:15 Sample Site R rad 07/25/17 06:06 ABG pH 7.500 (7.35-7.45) H 07/25/17 06:06 ABG pCO2 44.0 mmHg (35.0-45.0) 07/25/17 06:06 ABG pO2 58.0 mmHg (80.0-100.0) L 07/25/17 06:06 ABG HCO3 34.3 mmol/L (22-26) H* 07/25/17 06:06 ABG O2 Saturation 92.0 % (90-100) 07/25/17 06:06 ABG Base Excess 10.0 mmol/L (-2.0-2.0) H 07/25/17 06:06 Raf Test Pos 07/25/17 06:06 A-a Gradient 115.0 mmHg 07/25/17 06:06 FiO2 32.000 07/25/17 06:06 Blood Gas Comments Darrius well, af 07/25/17 06:06 Sodium 143 mmol/L (136-145) 07/27/17 04:45 Corrected Sodium 146 mmol/L (136-145) H 07/27/17 04:45 Potassium 3.8 mmol/L (3.5-5.1) 07/27/17 04:45 Chloride 105 mmol/L (98-107) 07/27/17 04:45 Carbon Dioxide 28.2 mmol/L (21-32) 07/27/17 04:45 BUN 12 mg/dL (7-18) 07/27/17 04:45 Creatinine 1.25 mg/dL (0.70-1.30) 07/27/17 04:45 Est GFR (MDRD) Af Amer > 60 (>60) 07/27/17 04:45 Est GFR (MDRD) Non-Af > 60 (>60) 07/27/17 04:45 Glucose 207 mg/dL (65-99) H 07/27/17 04:45 POC Glucose (mg/dL) 226 mg/dL (65-99) H 07/27/17 05:34 Hemoglobin A1c 10.4 % (4.5-6.2) H 07/26/17 04:45 Lactic Acid 5.6 mmol/L (0.4-2.0) H 07/21/17 17:17 Calcium 8.9 mg/dL (8.5-10.1) 07/27/17 04:45 Corrected Calcium 9.8 mg/dL (8.5-10.1) 07/27/17 04:45 Total Bilirubin 0.70 mg/dL (0.2-1.0) 07/27/17 04:45 AST 34 Units/L (15-37) 07/27/17 04:45 ALT 31 Units/L (12-78) 07/27/17 04:45 Alkaline Phosphatase 66 Units/L (46-116) 07/27/17 04:45 Creatine Kinase 207 Units/L (39-308) 07/24/17 17:39 CK-MB (CK-2) < 1.0 ng/mL (0-4.0) 07/24/17 17:39 CK/CKMB % Calc 0.5 % (<4) 07/24/17 17:39 Troponin I < 0.02 ng/mL (0-1.5) 07/24/17 17:39 Total Protein 7.1 g/dL (6.4-8.2) 07/27/17 04:45 Albumin 2.9 g/dL (3.4-5.0) L 07/27/17 04:45 Globulin 4.2 g/dL (2.5-4.5) 07/27/17 04:45 Albumin/Globulin Ratio 0.7 Ratio (1.1-2.1) L 07/27/17 04:45 Triglycerides 219 mg/dL (0-150) H 07/23/17 05:45 Cholesterol 274 mg/dL (0-200) H 07/23/17 05:45 LDL Cholesterol, Calc 193 mg/dL (0-100) H 07/23/17 05:45 HDL Cholesterol 37 mg/dL (40-60) L 07/23/17 05:45 Cholesterol/HDL Ratio 7.4 (0.0-5.0) H 07/23/17 05:45 Specimen Type Random urine 07/21/17 15:56 Urine Color Yellow (YELLOW) 07/21/17 15:56 Urine Appearance Slightly hazy (CLEAR) 07/21/17 15:56 Urine pH 5.0 (5.0 - 8.0) 07/21/17 15:56 Ur Specific [place] 1.015 (1.000-1.030) 07/21/17 15:56 Urine Protein 3+ (NEGATIVE) 07/21/17 15:56 Urine Glucose (UA) 4+ (NEGATIVE) 07/21/17 15:56 Urine Ketones 2+ (NEGATIVE) 07/21/17 15:56 Urine Occult Blood 2+ (NEGATIVE) 07/21/17 15:56 Urine Nitrite Negative (NEGATIVE) 07/21/17 15:56 Urine Bilirubin Negative (NEGATIVE) 07/21/17 15:56 Urine Acetone Small (NEGATIVE) 07/25/17 05:15 Urine Urobilinogen Normal (NORMAL) 07/21/17 15:56 Ur Leukocyte Esterase Negative (NEGATIVE) 07/21/17 15:56 Urine RBC 1-3 /HPF (NEGATIVE) 07/21/17 15:56 Urine WBC 5-7 /HPF (NEGATIVE) 07/21/17 15:56 Ur Squamous Epith Cells Rare /HPF (NEGATIVE) 07/21/17 15:56 Amorphous Sediment 1+ /HPF (NEGATIVE) 07/21/17 15:56 Urine Bacteria 1+ /HPF (NEGATIVE) 07/21/17 15:56 Ur Culture Indicated? No/not indicated 07/21/17 15:56 Acetone, Semi-Quant Negative (NEGATIVE) 07/25/17 04:25 - Plan (1) DKA (diabetic ketoacidoses) Status: Acute Qualifiers: Diabetes mellitus type: type 2 Diabetes mellitus complication detail: without coma Qualified Code(s): E13.10 - Other specified diabetes mellitus with ketoacidosis without coma Plan: HUMULIN N 35UNITS BID, METFORMIN 850MG BID, SLIDING SCALE INSULIN, OTBS Q2H, MONITOR URINE ACETONES, CONTINUE TO MONITOR (2) Diabetes mellitus, new onset Status: Acute Plan: HUMULIN N 35UNITS BID, METFORMIN 850MG BID, SLIDING SCALE INSULIN, OTBS Q2H, MONITOR URINE ACETONES, CONTINUE TO MONITOR (3) UTI (urinary tract infection) Status: Acute Qualifiers: Urinary tract infection type: site unspecified Hematuria presence: without hematuria Qualified Code(s): N39.0 - Urinary tract infection, site not specified Plan: ROCEPHIN 1GM IV DAILY, CONTINUE TO MONITOR (4) Hyperlipidemia Status: Acute Qualifiers: Hyperlipidemia type: mixed hyperlipidemia Qualified Code(s): E78.2 - Mixed hyperlipidemia Plan: START ROSUVASTATIN 10GM HS, START ECOTRIN 325MG DAILY, CONTINUE TO MONITOR (5) Hypertension Status: Acute Qualifiers: Hypertension type: essential hypertension Qualified Code(s): I10 - Essential (primary) hypertension Plan: LISINOPRIL 20MG HS, CONTINUE TO MONITOR
== END 2017-07-27 11:25 | disposition home or self-care (01) | DRG 638 ==
LOC: ER 15:58 → ICU 19:18
PROVIDERS: ADMIT Internal Medicine; ATTEND Internal Medicine
DX: E13.10 Other specified diabetes mellitus with ketoacidosis without coma (principal); J98.11 Atelectasis; N39.0 Urinary tract infection, site not specified; I10 Essential (primary) hypertension; E87.5 Hyperkalemia; E78.2 Mixed hyperlipidemia; R53.1 Weakness; R06.02 Shortness of breath
CPT/HCPCS: 36415; 36600; 70450; 71010; 71250; 80048; 80053; 80061; 81001; 82009; 82550; 82553; 82803; 82947; 83036; 83605; 84132; 84484; 85025; 85610; 85730; 87040; 87086; 93005; 94640; 96365; 96374; 99231; 99284; 99285; A4216; A4222; 1956; J0456; J0692; J0696; J1450; J1815; J1885; J1956; J3490

== ENCOUNTER 2025-01-31 20:56 | Inpatient (IN) ==
--- NOTE | 2025-01-31 21:07 | DR.AMS ---
HPI Time Seen Time Seen by Provider: 01/31/25 21:07 HPI Comment HPI Comment: 49 y/o noncompliant diabetic has been poorly arousable to unresponsive x one day per family; ems called after family noted bs reading to be "high"; he apparently saw his pcp yesterday and was given 28 units in the office and placed on farxiga, actos and metformin; the daughter reports he took all three medications this morning but sugar won't come down; pt is currently unresponsive. PMH PMH Past Medical History: Hypertension Past Surgical History: Yes Social History Do you use any recreational Drugs:: No ROS Review of Systems Unable to Obtain Due To: Altered mental status (stupor) PE Vitals Vital Signs: Temp Pulse Resp BP Pulse Ox O2 Del Method 02/01/25 00:45 105 H 17 02/01/25 00:30 126/73 02/01/25 00:15 108 H 15 02/01/25 00:04 113 H 20 02/01/25 00:00 109 H 22 01/31/25 23:45 112 H 23 01/31/25 23:30 111 H 22 01/31/25 23:30 168/96 01/31/25 23:30 168/96 01/31/25 23:30 168/96 01/31/25 23:15 112 H 33 H 01/31/25 23:00 135/85 01/31/25 23:00 112 H 23 01/31/25 22:53 114 H 26 H 01/31/25 22:30 112 H 21 94 L 01/31/25 22:30 121/89 01/31/25 22:15 110 H 23 01/31/25 22:01 110 H 22 01/31/25 22:01 121/82 01/31/25 22:00 110 H 23 01/31/25 21:35 137/73 01/31/25 21:34 111 H 22 93 L 01/31/25 21:47 99.6 F 01/31/25 20:57 98.6 F 87 24 120/66 91 L Nasal Cannula General Limitations: Language Barrier General Appearance: Alert Head Head Exam: Normal Inspection Neck Neck Exam: Normal Inspection Chest Chest Inspection: Normal Inspection Respiratory Respiratory Exam: Normal Lung Sounds Bilat Cardiovascular Cardiovascular Exam: Regular Rate and Normal Rhythm Abdominal Exam Abdominal Exam: Normal Inspection, Normal Bowel Sounds and Soft Extremities Extremities Exam: Normal Inspection Back Back Exam: Normal Inspection Neurological Neurological Exam: Other (stupor, unarousable) Skin Skin Exam: Warm, Dry, Intact and Normal Color COURSE Treatment Treatment: 49 y/o with hx dm on no medications for the past five years received [address] Lewis's office yesterday and given metformin, farxiga and actos by his daughter this morning. He then became somnolent and eventually unresponsive with bs reading "high". EMS was called and was transported here where rbs was 928 and corrected sodium 174; potassium initially 5.6. After insulin drip and saline, rbs now 615 with corrected sodium 172; admit, fluids switch to 1/2 NS and continue insulin gtt. Reevaluation 1st: Unchanged 2nd: Improved (opens eyes, mumbles in attempt to answer questions, now laying on left side) Consultation Call Returned: 00:52 (Dr Lazo accepts admission.) Critical Care Notes Total Time (mins): 30 Critical Diagnosis: dka, hypernatremia, hyperkalemia, acute on crf Critical Interventions: labs/ct with interpretation of results insulin gtt fluids, multiple evaluations of sugars and adjustments per protocol d/w family members re: dx and prognosis and need for admission d/w Dr Lazo re: dx and need for admission ROR Labs Reviewed Laboratory Results Reviewed?: Yes 01/31/25 21:20 02/01/25 00:40 Laboratory: WBC 16.9 X10^3/uL (3.6-10.0) H 01/31/25 21:20 RBC 5.73 X10^6/uL (4.7-6.0) 01/31/25 21:20 Hgb 16.9 g/dL (13.5-18.0) 01/31/25 21:20 Hct 51.9 % (42.0-54.0) 01/31/25 21: MCV 90.7 fL (80.0-100.0) 01/31/25 21:20 MCH 29.5 pg (27.0-34.0) 01/31/25 21: MCHC 32.5 g/dL (33.0-35.0) L 01/31/25 21:20 RDW 14.4 % (11.6-16.5) 01/31/25 21:20 Plt Count 145 X10^3/uL (150.0-450.0) L 01/31/25 21:20 MPV 10.6 fL (7.4-11.0) 01/31/25 21:20 Neut % (Auto) 87.1 % (42.0-75.0) H 01/31/25 21:20 Lymph % (Auto) 6.5 % (21.0-51.0) L 01/31/25 21:20 [place] % (Auto) 5.8 % (0.0-13.0) 01/31/25 21:20 Eos % (Auto) 0.0 % (0.9-2.9) L 01/31/25 21:20 Baso % (Auto) 0.6 % (0.2-1.0) 01/31/25 21:20 Neut # (Auto) 14.8 x10^3/uL (2.2-4.8) H 01/31/25 21:20 Lymph # (Auto) 1.1 X10^3/uL (1.3-2.9) L 01/31/25 21:20 [place] # (Auto) 1.0 x10^3/uL (0.3-0.8) H 01/31/25 21:20 Eos # (Auto) 0.0 x10^3/uL (0.0-0.2) 01/31/25 21:20 Baso # (Auto) 0.1 X10^3/uL (0.0-0.1) 01/31/25 21:20 Absolute Nucleated RBC 0.0 /100WBC 01/31/25 21:20 Sample Site Lr 01/31/25 21:07 ABG pH 7.290 (7.35-7.45) L 01/31/25 21:07 ABG pCO2 32.0 mmHg (35.0-45.0) L 01/31/25 21:07 ABG pO2 65.0 mmHg (80.0-100.0) L 01/31/25 21:07 ABG HCO3 15.4 mmol/L (22-26) L* 01/31/25 21:07 ABG O2 Saturation 90.0 % (90-100) 01/31/25 21:07 ABG Base Excess -10.1 mmol/L (-2.0-2.0) L 01/31/25 21:07 Raf Test Pos 01/31/25 21:07 A-a Gradient 95.0 mmHg 01/31/25 21:07 FiO2 28.0 01/31/25 21:07 Blood Gas Comments Darrius well sw 01/31/25 21:07 Sodium 160 mmol/L (136-145) H* 02/01/25 00:40 Corrected Sodium 172 mmol/L (136-145) H 02/01/25 00:40 Potassium 4.0 mmol/L (3.5-5.1) 02/01/25 00:40 Chloride 116 mmol/L (98-107) H* 02/01/25 00:40 Carbon Dioxide 19.9 mmol/L (21-32) L 02/01/25 00:40 BUN 89 mg/dL (7-18) H 02/01/25 00:40 Creatinine 4.06 mg/dL (0.70-1.30) H 02/01/25 00:40 Est GFR (MDRD) Af Amer 20 (>60) L 02/01/25 00:40 Est GFR (MDRD) Non-Af 17 (>60) L 02/01/25 00:40 Glucose 615 mg/dL (65-99) H* 02/01/25 00:40 POC Glucose (mg/dL) 517 mg/dL (65-99) H* 02/01/25 00:25 Calcium 9.7 mg/dL (8.5-10.1) 02/01/25 00:40 Corrected Calcium TNP 01/31/25 21:20 Total Bilirubin 0.80 mg/dL (0.2-1.0) 01/31/25 21:20 AST 13 Units/L (15-37) L 01/31/25 21:20 ALT 24 Units/L (12-78) 01/31/25 21:20 Alkaline Phosphatase 78 Units/L (46-116) 01/31/25 21:20 Total Protein 9.1 g/dL (6.4-8.2) H 01/31/25 21:20 Albumin 4.1 g/dL (3.4-5.0) 01/31/25 21:20 Globulin 5.0 g/dL (2.5-4.5) H 01/31/25 21:20 Albumin/Globulin Ratio 0.8 Ratio (1.1-2.1) L 01/31/25 21:20 Specimen Type Catherized urine 01/31/25 21:37 Urine Color Yellow (YELLOW) 01/31/25 21:37 Urine Appearance Hazy (CLEAR) 01/31/25 21:37 Urine pH 5.0 (5.0 - 8.0) 01/31/25 21:37 Ur Specific [place] 1.015 (1.000-1.030) 01/31/25 21:37 Urine Protein 3+ (NEGATIVE) 01/31/25 21:37 Urine Glucose (UA) 4+ (NEGATIVE) 01/31/25 21:37 Urine Ketones 2+ (NEGATIVE) 01/31/25 21:37 Urine Blood 3+ (NEGATIVE) 01/31/25 21:37 Urine Nitrite Negative (NEGATIVE) 01/31/25 21:37 Urine Bilirubin Negative (NEGATIVE) 01/31/25 21:37 Urine Urobilinogen Normal (NORMAL) 01/31/25 21:37 Ur Leukocyte Esterase Negative (NEGATIVE) 01/31/25 21:37 Urine RBC 0-2 /HPF (0-3) 01/31/25 21:37 Urine WBC None seen /HPF (0-5) 01/31/25 21:37 Ur Squamous Epith Cells Rare /HPF (NEGATIVE) 01/31/25 21:37 Amorphous Sediment 1+ /HPF (NEGATIVE) 01/31/25 21:37 Urine Bacteria Trace /HPF (NEGATIVE) 01/31/25 21:37 Ur Culture Indicated? No/not indicated 01/31/25 21:37 Acetone, Semi-Quant Large (NEGATIVE) H 01/31/25 21:20 SARS-CoV-2 (PCR) Negative (NEGATIVE) 01/31/25 22:12 Influenza Type A (PCR) Negative (NEGATIVE) 01/31/25 22:12 Influenza Type B (PCR) Negative (NEGATIVE) 01/31/25 22:12 RSV (PCR) Negative (NEGATIVE) 01/31/25 22:12 XRAY XRAY Interpreted by: Radiologist X-ray Results: ct chest w/o: 1. No acute intrathoracic abnormality identified. 2. Mild thoracic aortic aneurysm.3. Hepatic steatosis Opioid Opioid Risk Tool Total: 0 Total Score Risk Category: Low Risk Copyright: Leander ROME predicting aberrant behaviors Discharge Plan Diagnosis Discharge Problem: Hyperkalemia, Acute hypernatremia DKA (diabetic ketoacidoses) Qualifiers: Diabetes mellitus type: type 2 Diabetes mellitus complication detail: without coma Qualified Code(s): E11.10 - Type 2 diabetes mellitus with ketoacidosis without coma Discharge Plan Patient Disposition: ADMITTED INPATIENT Condition: Stable
[2025-01-31] MEDS: NS 1,000 ML IV 1,000 ML IV ONE ×2 (21:14→22:31)
[2025-01-31 21:25] LABS: BASOPHILS # (AUTO) 0.1 X10^3/uL (0.0-0.1); BASOPHILS % (AUTO) 0.6 % (0.2-1.0); HEMATOCRIT 51.9 % (42.0-54.0); HEMOGLOBIN 16.9 g/dL (13.5-18.0); LYMPHOCYTES # (AUTO) 1.1 X10^3/uL (1.3-2.9); LYMPHOCYTES % (AUTO) 6.5 % (21.0-51.0); MEAN CORPUSCULAR HEMOGLOBIN 29.5 pg (27.0-34.0); MEAN CORPUSCULAR HGB CONC 32.5 g/dL (33.0-35.0); MEAN CORPUSCULAR VOLUME 90.7 fL (80.0-100.0); MEAN PLATELET VOLUME 10.6 fL (7.4-11.0); MONOCYTES % (AUTO) 5.8 % (0.0-13.0); NEUTROPHILS # (AUTO) 14.8 x10^3/uL (2.2-4.8); NEUTROPHILS % (AUTO) 87.1 % (42.0-75.0); PLATELET COUNT 145 X10^3/uL (150.0-450.0); RED BLOOD COUNT 5.73 X10^6/uL (4.7-6.0); RED CELL DISTRIBUTION WIDTH 14.4 % (11.6-16.5); WHITE BLOOD COUNT 16.9 X10^3/uL (3.6-10.0)
[2025-01-31 21:33] LABS: ABG BASE EXCESS -10.1 mmol/L (-2.0-2.0)
[2025-01-31 21:34] LABS: ABG ALLEN TEST POS; ABG HCO3 15.4 mmol/L (22-26)
[2025-01-31 21:38] LABS: ALANINE AMINOTRANSFERASE 24 Units/L (12-78); ALBUMIN 4.1 g/dL (3.4-5.0); ALKALINE PHOSPHATASE 78 Units/L (46-116); ASPARTATE AMINO TRANSFERASE 13 Units/L (15-37); BLOOD UREA NITROGEN 97 mg/dL (7-18); CALCIUM 9.6 mg/dL (8.5-10.1); CHLORIDE 110 mmol/L (98-107); CREATININE 4.46 mg/dL (0.70-1.30); POTASSIUM 5.6 mmol/L (3.5-5.1); TOTAL PROTEIN 9.1 g/dL (6.4-8.2); eGFR NON BLACK RACES 15 (>60)
[2025-01-31 21:41] LABS: COR NA(FOR HYPERGLY) 174 mmol/L (136-145); SODIUM 154 mmol/L (136-145)
[2025-01-31 21:42] LABS: GLUCOSE 928 mg/dL (65-99)
[2025-01-31 21:44] LABS: SERUM ACETONE LARGE (NEGATIVE)
[2025-01-31 21:52] LABS: BILIRUBIN,URINE NEGATIVE (NEGATIVE); BLOOD/HEMOGLOBIN,URINE 3+ (NEGATIVE); GLUCOSE, URINE 4+ (NEGATIVE); KETONES,URINE 2+ (NEGATIVE); LEUKOCYTE ESTERASE ,URINE NEGATIVE (NEGATIVE); NITRITES,URINE NEGATIVE (NEGATIVE); PROTEIN,URINE 3+ (NEGATIVE); UROBILINOGEN,URINE NORMAL (NORMAL)
[2025-01-31 21:54] LABS: APPEARANCE,URINE HAZY (CLEAR); COLOR,URINE YELLOW (YELLOW)
[2025-01-31] MEDS: MYXREDLIN 100 UNIT/100 ML BAG 100 UNIT/100 ML PLAST..BAG IV PRN (22:05)
[2025-01-31 22:07] LABS: RBC,URINE 0-2 /HPF (0-3)
[2025-01-31 22:08] LABS: BACTERIA,URINE TRACE /HPF (NEGATIVE); SQUAMOUS EPITHELIAL CELL,UR RARE /HPF (NEGATIVE)
--- NOTE | 2025-02-01 00:15 | CT ---
EXAM:CT CHEST WITHOUT CONTRASTHISTORY:hypoxia, fever;COMPARISON:None.TECHNIQUE:Axial CT images were obtained through the chest without contrast. Coronal reformatted images were included.All CT scans at this facility use dose modulation, iterative reconstruction, and/or weight based dosing when appropriate to reduce radiation dose to as low as reasonably achievable.FINDINGS:Thoracic aorta mild aneurysm measuring 4.1 cm.HEART, VESSELS, AND MEDIASTINUM: Within normal limits.LYMPH NODES: No pathologically enlarged nodes.LUNGS AND PLEURA: Within normal limits. Bibasilar atelectasisAIRWAYS: Within normal limits.UPPER ABDOMEN: Extensive fatty infiltration of liver. Multiple right renal cysts.BONES: Within normal limits.IMPRESSION:1. No acute intrathoracic abnormality identified.2. Mild thoracic aortic aneurysm.3. Hepatic steatosisTHIS IS AN ELECTRONICALLY VERIFIED FINAL REPORT02/01/2025 12:10 AM - Electronically signed by Lara Carney MD
[2025-02-01] MEDS: NS 1,000 ML IV 1,000 ML IV ONE (00:56)
[2025-02-01 01:00] LABS: CALCIUM 9.7 mg/dL (8.5-10.1); CARBON DIOXIDE 19.9 mmol/L (21-32); CREATININE 4.06 mg/dL (0.70-1.30)
[2025-02-01] MEDS ORDERED: CONSULT PHARMACY - POTASSIUM & MAGNESIUM XX SCH (01:00)
[2025-02-01] MEDS: NS 1/2 1,000 ML IV 1,000 ML IV SCH (01:11)
[2025-02-01] MEDS: NS 1,000 ML IV 1,000 ML IV SCH (01:11)
[2025-02-01 02:16] LABS: MAGNESIUM 4.7 mg/dL (2.0-2.9); PHOSPHORUS 6.9 mg/dL (2.6-4.7)
[2025-02-01 02:17] LABS: HEMOGLOBIN A1C 10.8 %
--- NOTE | 2025-02-01 02:25 | EKG ---
Test Reason : DKA Blood Pressure : */* mmHG Vent. Rate : 106 BPM Atrial Rate : 106 BPM P-R Int : 142 ms QRS Dur : 78 ms QT Int : 376 ms P-R-T Axes : 61 -49 82 degrees QTc Int : 499 ms Sinus tachycardia Left axis deviation Abnormal ECG No previous ECGs available Confirmed by Kevan Melendez MD ([id number]) on 02/01/2025 5:19:05 AM Referred By: Confirmed By: Kevan Melendez MD
[2025-02-01 02:33] VITALS: BMI 34.9
[2025-02-01] MEDS: NS 1/2 + KCL 20 MEQ/L 1,000 ML IV SCH (03:30)
[2025-02-01 05:20] LABS: BASOPHILS # (AUTO) 0.1 X10^3/uL (0.0-0.1); BASOPHILS % (AUTO) 0.3 % (0.2-1.0); HEMATOCRIT 50.8 % (42.0-54.0); HEMOGLOBIN 17.3 g/dL (13.5-18.0); LYMPHOCYTES # (AUTO) 2.4 X10^3/uL (1.3-2.9); LYMPHOCYTES % (AUTO) 12.6 % (21.0-51.0); MEAN CORPUSCULAR HEMOGLOBIN 29.7 pg (27.0-34.0); MEAN CORPUSCULAR VOLUME 87.3 fL (80.0-100.0); MEAN PLATELET VOLUME 10.3 fL (7.4-11.0); MONOCYTES # (AUTO) 1.6 x10^3/uL (0.3-0.8); MONOCYTES % (AUTO) 8.4 % (0.0-13.0); NEUTROPHILS # (AUTO) 15.3 x10^3/uL (2.2-4.8); NEUTROPHILS % (AUTO) 78.7 % (42.0-75.0); PLATELET COUNT 127 X10^3/uL (150.0-450.0); RED BLOOD COUNT 5.83 X10^6/uL (4.7-6.0); WHITE BLOOD COUNT 19.4 X10^3/uL (3.6-10.0)
[2025-02-01 05:29] LABS: ABG BASE EXCESS 0.8 mmol/L (-2.0-2.0)
[2025-02-01 05:30] LABS: ABG ALLEN TEST POS
[2025-02-01 05:36] LABS: ALANINE AMINOTRANSFERASE 23 Units/L (12-78); ALBUMIN 4.2 g/dL (3.4-5.0); ALKALINE PHOSPHATASE 77 Units/L (46-116); ASPARTATE AMINO TRANSFERASE 15 Units/L (15-37); BLOOD UREA NITROGEN 80 mg/dL (7-18); CALCIUM 9.6 mg/dL (8.5-10.1); CARBON DIOXIDE 25.6 mmol/L (21-32); COR NA(FOR HYPERGLY) 171 mmol/L (136-145); CREATININE 3.34 mg/dL (0.70-1.30); GLUCOSE 326 mg/dL (65-99); POTASSIUM 4.2 mmol/L (3.5-5.1); TOTAL PROTEIN 9.1 g/dL (6.4-8.2); eGFR NON BLACK RACES 21 (>60)
[2025-02-01 05:37] LABS: SODIUM 166 mmol/L (136-145)
[2025-02-01 05:38] LABS: CHLORIDE 124 mmol/L (98-107)
[2025-02-01 06:30] LABS: PLATELET MORPHOLOGY COMMENT NORMAL (NORMAL)
[2025-02-01] MEDS: NS 1/2 1,000 ML IV 1,000 ML IV ONE (07:00)
[2025-02-01] MEDS: LOVENOX INJ 30 MG SYR SC SCH (08:44)
[2025-02-01] MEDS: LR 1,000 ML IV 1,000 ML IV SCH ×2 (09:24→11:17)
[2025-02-01] MEDS ORDERED: DIFLUCAN 200 MG IV PREMIX* 200 MG/100 ML BAG IV SCH (10:00)
[2025-02-01 10:10] LABS: CALCIUM 9.5 mg/dL (8.5-10.1); CARBON DIOXIDE 27.2 mmol/L (21-32); CREATININE 3.09 mg/dL (0.70-1.30); POTASSIUM 4.7 mmol/L (3.5-5.1)
[2025-02-01] MEDS: DIFLUCAN 100 MG IV (MIX by PHARMACY)* 100 MG/50 ML BAG IV SCH (10:24)
[2025-02-01] MEDS: ZOFRAN INJ 4 MG VIAL IVP PRN (11:43)
[2025-02-01 14:02] LABS: CALCIUM 9.5 mg/dL (8.5-10.1); CARBON DIOXIDE 31.4 mmol/L (21-32); CREATININE 2.66 mg/dL (0.70-1.30); MAGNESIUM 3.8 mg/dL (2.0-2.9); POTASSIUM 4.6 mmol/L (3.5-5.1)
[2025-02-01 14:02] LABS: ABG ALLEN TEST POS; ABG BASE EXCESS 5.1 mmol/L (-2.0-2.0)
[2025-02-01] MEDS: LR 1,000 ML IV 1,000 ML IV ONE (14:39)
[2025-02-01 17:13] LABS: CALCIUM 9.2 mg/dL (8.5-10.1); CARBON DIOXIDE 28.7 mmol/L (21-32); CREATININE 2.35 mg/dL (0.70-1.30); POTASSIUM 4.6 mmol/L (3.5-5.1)
[2025-02-01] MEDS: SNACK - Diabetic Appropriate PO SCH (20:52)
[2025-02-01 21:16] LABS: CALCIUM 9.3 mg/dL (8.5-10.1); CARBON DIOXIDE 31.9 mmol/L (21-32); CREATININE 2.31 mg/dL (0.70-1.30); POTASSIUM 4.5 mmol/L (3.5-5.1)
[2025-02-01] MEDS: LANTUS SC SCH (21:53)
[2025-02-01 22:47] LABS: ABG HCO3 32.5 mmol/L (22-26)
[2025-02-01 22:48] LABS: ABG ALLEN TEST POS
[2025-02-02 01:47] LABS: CALCIUM 9.4 mg/dL (8.5-10.1); CARBON DIOXIDE 27.2 mmol/L (21-32); CREATININE 2.26 mg/dL (0.70-1.30); POTASSIUM 4.6 mmol/L (3.5-5.1)
[2025-02-02 05:38] LABS: BASOPHILS # (AUTO) 0.1 X10^3/uL (0.0-0.1); BASOPHILS % (AUTO) 0.9 % (0.2-1.0); EOSINOPHILS % (AUTO) 0.4 % (0.9-2.9); HEMATOCRIT 43.4 % (42.0-54.0); HEMOGLOBIN 14.7 g/dL (13.5-18.0); LYMPHOCYTES # (AUTO) 2.2 X10^3/uL (1.3-2.9); LYMPHOCYTES % (AUTO) 19.3 % (21.0-51.0); MEAN CORPUSCULAR HEMOGLOBIN 29.6 pg (27.0-34.0); MEAN CORPUSCULAR HGB CONC 33.8 g/dL (33.0-35.0); MEAN CORPUSCULAR VOLUME 87.5 fL (80.0-100.0); MEAN PLATELET VOLUME 10.3 fL (7.4-11.0); MONOCYTES # (AUTO) 0.8 x10^3/uL (0.3-0.8); MONOCYTES % (AUTO) 6.6 % (0.0-13.0); NEUTROPHILS # (AUTO) 8.3 x10^3/uL (2.2-4.8); NEUTROPHILS % (AUTO) 72.8 % (42.0-75.0); PLATELET COUNT 82 X10^3/uL (150.0-450.0); RED BLOOD COUNT 4.97 X10^6/uL (4.7-6.0); RED CELL DISTRIBUTION WIDTH 14.2 % (11.6-16.5); WHITE BLOOD COUNT 11.5 X10^3/uL (3.6-10.0)
[2025-02-02 05:43] LABS: CALCIUM 9.3 mg/dL (8.5-10.1); CARBON DIOXIDE 28.6 mmol/L (21-32); CREATININE 2.18 mg/dL (0.70-1.30); POTASSIUM 4.4 mmol/L (3.5-5.1)
--- NOTE | 2025-02-02 06:10 | EKG ---
Test Reason : DKA Blood Pressure : */* mmHG Vent. Rate : 92 BPM Atrial Rate : 92 BPM P-R Int : 138 ms QRS Dur : 76 ms QT Int : 422 ms P-R-T Axes : 54 -35 74 degrees QTc Int : 521 ms Normal sinus rhythm Left axis deviation Prolonged QT Abnormal ECG When compared with ECG of 01-FEB-2025 02:07, T wave amplitude has decreased in Anterolateral leads Confirmed by Kevan Melendez MD ([id number]) on 02/02/2025 7:22:49 AM Referred By: Confirmed By: Kevan Melendez MD
[2025-02-02 09:40] LABS: CALCIUM 9.2 mg/dL (8.5-10.1); CARBON DIOXIDE 33.4 mmol/L (21-32); CREATININE 2.1 mg/dL (0.70-1.30); POTASSIUM 4.3 mmol/L (3.5-5.1)
[2025-02-02] MEDS: NS 1/2 1,000 ML IV 1,000 ML IV SCH (09:49)
[2025-02-02] MEDS ORDERED: NovoLIN R (or HumuLIN R) SUBCUT PRN (09:52)
[2025-02-02] MEDS: NS 1/2 1,000 ML IV 1,000 ML IV ONE (10:58)
[2025-02-02 13:07] LABS: ABG BASE EXCESS 3.6 mmol/L (-2.0-2.0); ABG HCO3 29.1 mmol/L (22-26)
[2025-02-02] MEDS ORDERED: OFIRMEV IV 1000 MG VIAL 1,000 MG/100 ML VIAL IV ONE (13:08)
[2025-02-02 13:09] LABS: ABG ALLEN TEST POS
[2025-02-02] MEDS: LASIX IVP ONE (13:10)
[2025-02-02] MEDS: OFIRMEV IV 1000 MG VIAL 1,000 MG/100 ML VIAL IV PRN (13:11)
[2025-02-02] MEDS ORDERED: NS 250 ML IV 25 ML IV PRN (13:19)
[2025-02-02 13:25] LABS: BASOPHILS # (AUTO) 0.1 X10^3/uL (0.0-0.1); BASOPHILS % (AUTO) 1.1 % (0.2-1.0); EOSINOPHILS # (AUTO) 0.1 x10^3/uL (0.0-0.2); EOSINOPHILS % (AUTO) 0.6 % (0.9-2.9); HEMATOCRIT 45.5 % (42.0-54.0); HEMOGLOBIN 15.2 g/dL (13.5-18.0); LYMPHOCYTES % (AUTO) 22.5 % (21.0-51.0); MEAN CORPUSCULAR HEMOGLOBIN 29.6 pg (27.0-34.0); MEAN CORPUSCULAR HGB CONC 33.4 g/dL (33.0-35.0); MEAN CORPUSCULAR VOLUME 88.6 fL (80.0-100.0); MEAN PLATELET VOLUME 9.3 fL (7.4-11.0); MONOCYTES % (AUTO) 7.6 % (0.0-13.0); NEUTROPHILS % (AUTO) 68.2 % (42.0-75.0); PLATELET COUNT 78 X10^3/uL (150.0-450.0); RED BLOOD COUNT 5.13 X10^6/uL (4.7-6.0); RED CELL DISTRIBUTION WIDTH 14.3 % (11.6-16.5); WHITE BLOOD COUNT 13.2 X10^3/uL (3.6-10.0)
--- NOTE | 2025-02-02 13:28 | EKG ---
Test Reason : Short of breath Blood Pressure : */* mmHG Vent. Rate : 107 BPM Atrial Rate : 107 BPM P-R Int : 126 ms QRS Dur : 90 ms QT Int : 352 ms P-R-T Axes : 69 -25 86 degrees QTc Int : 469 ms Sinus tachycardia Abnormal ECG When compared with ECG of 02-FEB-2025 05:44, No significant change was found Confirmed by Kevan Melendez MD ([id number]) on 02/02/2025 5:45:00 PM Referred By: Confirmed By: Kevan Melendez MD
[2025-02-02] MEDS ORDERED: NS 100 ML IV 100 ML ONE (13:30)
[2025-02-02] MEDS ORDERED: LEVAQUIN PREMIX IV 750 MG 750 MG/150 ML BAG IV ONE (13:30)
[2025-02-02] MEDS ORDERED: ZOSYN VIAL 3.375 GRAMS IV ONE (13:30)
[2025-02-02 13:33] LABS: INR 1.27 (0.8-1.3)
[2025-02-02] MEDS: LEVAQUIN PREMIX IV 750 MG 750 MG/150 ML BAG IV SCH (13:36)
[2025-02-02 13:47] LABS: BILIRUBIN,URINE NEGATIVE (NEGATIVE); BLOOD/HEMOGLOBIN,URINE 5+ (NEGATIVE); GLUCOSE, URINE 3+ (NEGATIVE); KETONES,URINE NEGATIVE (NEGATIVE); LEUKOCYTE ESTERASE ,URINE 2+ (NEGATIVE); NITRITES,URINE NEGATIVE (NEGATIVE); PROTEIN,URINE 4+ (NEGATIVE); UROBILINOGEN,URINE NORMAL (NORMAL)
[2025-02-02] MEDS: LASIX ONE (13:49)
[2025-02-02 13:52] LABS: ALBUMIN 3.3 g/dL (3.4-5.0); CALCIUM 9.2 mg/dL (8.5-10.1); CARBON DIOXIDE 25.8 mmol/L (21-32); COR CA(FOR HYPOALB) 9.8 mg/dL (8.5-10.1); CREATININE 2.16 mg/dL (0.70-1.30); POTASSIUM 4.2 mmol/L (3.5-5.1); TOTAL PROTEIN 7.6 g/dL (6.4-8.2)
[2025-02-02 14:00] LABS: COLOR,URINE BLOODY (YELLOW)
[2025-02-02] MEDS ORDERED: LEVAQUIN IV SCH ×2 (14:00)
[2025-02-02 14:01] LABS: APPEARANCE,URINE SLIGHTLY HAZY (CLEAR); BACTERIA,URINE NEGATIVE /HPF (NEGATIVE); RBC,URINE TNTC /HPF (0-3); SQUAMOUS EPITHELIAL CELL,UR NEGATIVE /HPF (NEGATIVE); URIC ACID CRYSTALS,URINE NUMEROUS /HPF (NEGATIVE)
[2025-02-02] MEDS: ASPIRIN PO ONE (15:01)
[2025-02-02] MEDS: LOPRESSOR INJ 5 MG AMP IVP ONE (15:02)
[2025-02-02] MEDS: ZOSYN VIAL 3.375 GRAMS 3.375 G in NS 100 ML IV 100 ML IV SCH (15:11)
[2025-02-02] MEDS ORDERED: HEPARIN SODIUM IN D5W 25,000 UNITS/500 ML BAG ONE (16:02)
[2025-02-02] MEDS ORDERED: HEPARIN SODIUM INJ 5000 UNITS ONE (16:02)
[2025-02-02] MEDS: HEPARIN SODIUM INJ 5000 UNITS IVP ONE (16:06)
[2025-02-02] MEDS: HEPARIN SODIUM IN D5W 25,000 UNITS/500 ML BAG IV PRN (16:10)
[2025-02-02 16:17] VITALS: BP 102/68; PULSE 96; RESP 28; TEMP 99.3; O2SAT 97
[2025-02-02] MEDS ORDERED: SNACK - Diabetic Appropriate PO SCH (20:00)
[2025-02-02 21:40] LABS: ABG BASE EXCESS 8.2 mmol/L (-2.0-2.0)
[2025-02-02 21:41] LABS: ABG HCO3 33.4 mmol/L (22-26)
[2025-02-02 21:42] LABS: ABG ALLEN TEST POS
--- NOTE | 2025-02-02 22:28 | RAD ---
EXAM: FRONTAL VIEW CHEST X-RAY HISTORY: Short of breath COMPARISON: 07/26/2017 FINDINGS: Subsegmental atelectasis is noted. No focal consolidation is seen. The heart size is within normal limits. The mediastinum is unremarkable. There is no evidence of pleural effusion or gross pneumothorax. The trachea is midline. IMPRESSION: No focal consolidation is seen. The heart size is normal. THIS IS AN ELECTRONICALLY VERIFIED FINAL REPORT 02/02/2025 10:25 PM - Electronically signed by Aureliano Erazo MD
== END 2025-02-02 17:25 | disposition short-term general hospital (02) | DRG 280 ==
LOC: ER 20:56 → ICU 02-01 01:13
PROVIDERS: ADMIT Internal Medicine; ATTEND Obstetrics & Gynecology Obstetrics
DX: R79.89 Other specified abnormal findings of blood chemistry; E87.0 Hyperosmolality and hypernatremia; E83.42 Hypomagnesemia; I21.4 Non-ST elevation (NSTEMI) myocardial infarction; E11.65 Type 2 diabetes mellitus with hyperglycemia; R00.0 Tachycardia, unspecified; I71.20 Thoracic aortic aneurysm, without rupture, unspecified; R40.1 Stupor; R94.31 Abnormal electrocardiogram [ECG] [EKG]; R06.02 Shortness of breath; R79.1 Abnormal coagulation profile; K76.0 Fatty (change of) liver, not elsewhere classified; E11.10 Type 2 diabetes mellitus with ketoacidosis without coma; Z03.818 Encounter for observation for suspected exposure to other biological agents ruled out; E87.5 Hyperkalemia